=== PATIENT | female | born 1930 | race African-American/Black ===

== ENCOUNTER 2018-10-09 21:29 | Emergency (ER) | payer MEDICARE, MEDICAID ==
[~2018-10-09] VITALS: Ht 149.9 cm; Wt 92.0 kg
[~2018-10-09 21:29] MED LIST: LEVO250T2 PO; ZET10 PO
[2018-10-09] MEDS ORDERED: ASPIRIN 81MG TABLET PO ONE (22:45)
[2018-10-09 23:40] LABS: BASOPHILS % 0.4 % (0.0-2.0); EOSINOPHILS % 1.4 % (0.0-5.0); HEMATOCRIT. 37.4 % (36.0-48.0); HEMOGLOBIN. 12.3 g/dL (12.0-16.0); LYMPHOCYTES % 19.5 % (20.0-50.0); MEAN CORPUSCULAR HEMOGLOBIN 28.3 pg (28.0-32.0); MEAN CORPUSCULAR VOLUME 86.1 fL (81.0-99.0); MEAN PLATELET VOLUME 9.2 fl (7.4-10.4); MONOCYTES % 6.5 % (2.0-8.0); NEUTROPHILS % 72.2 % (40.0-76.0); PLATELET 199 x1000/uL (130-400); RED BLOOD CELL COUNT 4.35 mill/uL (4.2-5.4); RED CELL DISTRIBUTION WIDTH 15.7 % (11.6-14.6)
[2018-10-09 23:48] LABS: CHLORIDE 101 mEq/L (98-107)
[2018-10-10] MEDS ORDERED: SODIUM CHLORIDE 0.9% 1,000 ML IV ONE (00:15)
[2018-10-10 03:05] VITALS: BP 142/63
== END 2018-10-10 03:38 | disposition home or self-care (01) ==
LOC: ER 21:29
DX: I13.0 Hypertensive heart and chronic kidney disease with heart failure and stage 1 through stage 4 chronic kidney disease, or unspecified chronic kidney disease (principal); R07.89 Other chest pain; N18.9 Chronic kidney disease, unspecified; I50.9 Heart failure, unspecified; D64.9 Anemia, unspecified; E78.00 Pure hypercholesterolemia, unspecified; Z90.710 Acquired absence of both cervix and uterus
CPT/HCPCS: 36415; 71045; 83880; 84484; 93005; 99284

== ENCOUNTER 2018-10-14 12:26 | Emergency (ER) | payer MEDICARE, MEDICAID ==
[~2018-10-14] VITALS: Ht 149.9 cm; Wt 96.0 kg
[2018-10-14 15:47] VITALS: BP 172/74
== END 2018-10-14 18:19 | disposition left against medical advice (07) ==
LOC: ER 12:26
DX: R07.89 Other chest pain (principal); R53.1 Weakness; Z53.21 Procedure and treatment not carried out due to patient leaving prior to being seen by health care provider

== ENCOUNTER 2018-10-17 17:50 | Inpatient (IN) | payer MEDICARE, MEDICAID ==
[~2018-10-17] VITALS: Ht 167.6 cm; Wt 93.0 kg
[2018-10-17] MEDS ORDERED: ASPIRIN 81MG TABLET PO ONE (18:15)
[2018-10-17 18:42] LABS: BASOPHILS % 0.8 % (0.0-2.0); EOSINOPHILS % 1.4 % (0.0-5.0); HEMATOCRIT. 41.1 % (36.0-48.0); HEMOGLOBIN. 13.4 g/dL (12.0-16.0); LYMPHOCYTES % 19.8 % (20.0-50.0); MEAN CORPUSCULAR HEMOGLOBIN 28.2 pg (28.0-32.0); MEAN CORPUSCULAR VOLUME 86.6 fL (81.0-99.0); MEAN PLATELET VOLUME 9.2 fl (7.4-10.4); MONOCYTES % 8.5 % (2.0-8.0); NEUTROPHILS % 69.5 % (40.0-76.0); PLATELET 220 x1000/uL (130-400); RED BLOOD CELL COUNT 4.74 mill/uL (4.2-5.4); RED CELL DISTRIBUTION WIDTH 15.8 % (11.6-14.6)
[2018-10-17 18:45] LABS: CHLORIDE 105 mEq/L (98-107)
[2018-10-17 19:27] LABS: CLARITY URINE CLOUDY (CLEAR); COLOR URINE YELLOW (YELLOW); KETONES URINE NEGATIVE (NEGATIVE); LEUKOCYTE ESTERASE URINE 2+ (NEGATIVE); NITRITE URINE NEGATIVE (NEGATIVE); OCCULT BLOOD URINE NEGATIVE (NEGATIVE); PROTEIN URINE NEGATIVE (NEGATIVE); SPECIFIC GRAVITY URINE 1.007 (1.005-1.030); UROBILINOGEN URINE 0.2 E.U./dL (0.2-1.0)
[2018-10-17] MEDS ORDERED: CEFTRIAXONE 1 G PREMIX 50 ML IV ONE (20:15)
[2018-10-18] VITALS (7 sets, daily range): BP systolic 103–167; BP diastolic 49–75
[2018-10-18] MEDS ORDERED: ACETAMINOPHEN 325MG TABLET PO PRN (03:00)
[2018-10-18] MEDS ORDERED: LEVOFLOXACIN 500MG PREMIX 100 ML IV SCH ×3 (03:00→04:00)
[2018-10-18] MEDS ORDERED: CLONIDINE 0.1MG TABLET PO PRN (03:00)
[2018-10-18] MEDS: IPRATROPIUM/ALBUTEROL 0.5-3(2.5)MG/3ML NEB HHN SCH ×5 (05:25→20:18)
[2018-10-18 05:59] LABS: BASOPHILS % 0.5 % (0.0-2.0); EOSINOPHILS % 1.9 % (0.0-5.0); HEMATOCRIT. 35.3 % (36.0-48.0); HEMOGLOBIN. 11.5 g/dL (12.0-16.0); MEAN CORPUSCULAR HEMOGLOBIN 27.9 pg (28.0-32.0); MEAN CORPUSCULAR VOLUME 85.9 fL (81.0-99.0); MEAN PLATELET VOLUME 9.4 fl (7.4-10.4); MONOCYTES % 7.9 % (2.0-8.0); NEUTROPHILS % 67.7 % (40.0-76.0); PLATELET 214 x1000/uL (130-400); RED BLOOD CELL COUNT 4.11 mill/uL (4.2-5.4); RED CELL DISTRIBUTION WIDTH 15.9 % (11.6-14.6)
[2018-10-18 06:30] LABS: LDL CHOLESTEROL 75 mg/dL (5-100)
[2018-10-18 06:32] LABS: CREATINE KINASE 242 IU/L (26-192); HDL CHOLESTEROL 44 mg/dL (40-59)
[2018-10-18 06:35] LABS: CREATINE KINASE MB FRACTION 1.1 ng/mL (0.5-3.6)
[2018-10-18] MEDS ORDERED: OMEPRAZOLE 20MG CAPSULE EXTENDED RELEASE PO NR (07:45)
[2018-10-18] MEDS ORDERED: SODIUM CHL 0.45% + KCL 20MEQ/L 1,000 ML IV SCH (08:00)
[2018-10-18] MEDS ORDERED: ENOXAPARIN 40MG/0.4ML SYR SUBCUT SCH (09:00)
[2018-10-18] MEDS ORDERED: FUROSEMIDE 40MG/4ML VIAL IVP SCH (09:00)
[2018-10-18] MEDS ORDERED: POTASSIUM CHLORIDE 10MEQ TABLET SR PO SCH (09:00)
[2018-10-18] MEDS: ENOXAPARIN 30MG/0.3ML SYR SUBCUT SCH (09:20)
[2018-10-18 10:38] LABS: TOTAL IRON BINDING CAPACITY 270 ug/dL (250-450)
[2018-10-18] MEDS: EZETIMIBE 10MG TABLET PO SCH (10:41)
[2018-10-18] MEDS: DEXT 5%/0.45% NACL KCL 20MEQ/L 1,000 ML IV SCH (10:59)
[2018-10-18] MEDS: AMLODIPINE 5MG TABLET PO SCH ×2 (11:15→20:24)
[2018-10-18] MEDS ORDERED: INFLUENZA VIRUS VACCINE(AFLURIA) 0.5ML SYR IM ONE (12:00)
[2018-10-18] MEDS ORDERED: MECL-127 PO (18:05)
[2018-10-18] MEDS ORDERED: DOCU-150 PO (18:07)
[2018-10-18] MEDS ORDERED: LOSA50TA20 PO (18:08)
[2018-10-18] MEDS ORDERED: TRAM50TA3 PO (18:10)
[2018-10-18 18:12] LABS: CREATINE KINASE 216 IU/L (26-192)
[2018-10-18 18:13] LABS: CREATINE KINASE MB FRACTION < 1.0 ng/mL (0.5-3.6)
[2018-10-18] MEDS ORDERED: TRAMADOL 50MG TABLET PO PRN (18:30)
[2018-10-18] MEDS ORDERED: MECLIZINE 12.5MG TABLET PO PRN (18:30)
[2018-10-19] VITALS: BP 139/46
[2018-10-19] MEDS: IPRATROPIUM/ALBUTEROL 0.5-3(2.5)MG/3ML NEB HHN SCH ×6 (00:06→20:08)
[2018-10-19] MEDS: DEXT 5%/0.45% NACL KCL 20MEQ/L 1,000 ML IV SCH (00:35)
[2018-10-19 04:00] VITALS: BP 136/60
[2018-10-19] MEDS: LEVOFLOXACIN 250MG PREMIX 50 ML IV SCH (04:02)
[2018-10-19 06:34] LABS: BASOPHILS % 0.4 % (0.0-2.0); EOSINOPHILS % 1.7 % (0.0-5.0); HEMATOCRIT. 35.4 % (36.0-48.0); HEMOGLOBIN. 11.4 g/dL (12.0-16.0); LYMPHOCYTES % 21.1 % (20.0-50.0); MEAN CORPUSCULAR HEMOGLOBIN 28.1 pg (28.0-32.0); MEAN CORPUSCULAR VOLUME 86.9 fL (81.0-99.0); MEAN PLATELET VOLUME 9.2 fl (7.4-10.4); MONOCYTES % 8.4 % (2.0-8.0); NEUTROPHILS % 68.4 % (40.0-76.0); PLATELET 204 x1000/uL (130-400); RED BLOOD CELL COUNT 4.07 mill/uL (4.2-5.4); RED CELL DISTRIBUTION WIDTH 16.4 % (11.6-14.6)
[2018-10-19 08:00] VITALS: BP 141/66
[2018-10-19] MEDS: OMEPRAZOLE 20MG CAPSULE EXTENDED RELEASE PO SCH (08:48)
[2018-10-19] MEDS: AMLODIPINE 5MG TABLET PO SCH ×2 (08:48→21:43)
[2018-10-19] MEDS: DOCUSATE SODIUM 100MG CAPSULE PO SCH ×2 (08:48→17:16)
[2018-10-19] MEDS: EZETIMIBE 10MG TABLET PO SCH (08:48)
[2018-10-19] MEDS: ENOXAPARIN 30MG/0.3ML SYR SUBCUT SCH (08:49)
[2018-10-19] MEDS: DEXT 5%/0.45% NACL 1000ML 1,000 ML IV SCH ×2 (08:55→21:43)
[2018-10-19] MEDS ORDERED: LOSARTAN POTASSIUM 50 MG TABLET PO SCH (09:00)
[2018-10-19] MEDS ORDERED: SODIUM POLYSTYRENE SULFONATE 15 G/60 ML BOT PO NR (10:00)
[2018-10-19] MEDS ORDERED: REGADENOSON 0.4 MG/5 ML IV ONE (11:00)
[2018-10-19 12:00] VITALS: BP 140/60
[2018-10-19 16:00] VITALS: BP 144/78
[2018-10-20] MEDS: IPRATROPIUM/ALBUTEROL 0.5-3(2.5)MG/3ML NEB HHN SCH ×5 (00:06→20:33)
[2018-10-20] MEDS: LEVOFLOXACIN 250MG PREMIX 50 ML IV SCH (04:00)
[2018-10-20] MEDS: OMEPRAZOLE 20MG CAPSULE EXTENDED RELEASE PO SCH (07:40)
[2018-10-20 08:00] VITALS: BP 146/58
[2018-10-20] MEDS: EZETIMIBE 10MG TABLET PO SCH (09:00)
[2018-10-20] MEDS: DOCUSATE SODIUM 100MG CAPSULE PO SCH ×2 (09:00→17:30)
[2018-10-20] MEDS: AMLODIPINE 5MG TABLET PO SCH ×2 (09:00→20:41)
[2018-10-20] MEDS ORDERED: REGADENOSON 0.4 MG/5 ML IV ONE (10:08)
[2018-10-20] MEDS: ENOXAPARIN 30MG/0.3ML SYR SUBCUT SCH (11:25)
[2018-10-20 12:00] VITALS: BP 125/62
[2018-10-20 12:07] LABS: BASOPHILS % 0.4 % (0.0-2.0); EOSINOPHILS % 3.9 % (0.0-5.0); HEMATOCRIT. 37.7 % (36.0-48.0); HEMOGLOBIN. 12.5 g/dL (12.0-16.0); LYMPHOCYTES % 12.7 % (20.0-50.0); MEAN CORPUSCULAR HEMOGLOBIN 28.5 pg (28.0-32.0); MEAN CORPUSCULAR VOLUME 85.8 fL (81.0-99.0); MEAN PLATELET VOLUME 9.3 fl (7.4-10.4); MONOCYTES % 5.2 % (2.0-8.0); NEUTROPHILS % 77.8 % (40.0-76.0); PLATELET 224 x1000/uL (130-400); RED CELL DISTRIBUTION WIDTH 15.9 % (11.6-14.6)
[2018-10-20 16:00] VITALS: BP 151/63
[2018-10-20] MEDS: DEXT 5%/0.45% NACL 1000ML 1,000 ML IV SCH (17:30)
[2018-10-20 20:00] VITALS: BP 134/64
[2018-10-21] VITALS: BP 130/56
[2018-10-21] MEDS: IPRATROPIUM/ALBUTEROL 0.5-3(2.5)MG/3ML NEB HHN SCH ×3 (01:47→07:41)
[2018-10-21] MEDS: LEVOFLOXACIN 250MG PREMIX 50 ML IV SCH (03:06)
[2018-10-21 04:00] VITALS: BP 129/60
[2018-10-21 06:38] LABS: BASOPHILS % 0.5 % (0.0-2.0); EOSINOPHILS % 3.3 % (0.0-5.0); HEMOGLOBIN. 11.5 g/dL (12.0-16.0); LYMPHOCYTES % 15.7 % (20.0-50.0); MEAN CORPUSCULAR VOLUME 85.6 fL (81.0-99.0); MEAN PLATELET VOLUME 9.3 fl (7.4-10.4); MONOCYTES % 6.6 % (2.0-8.0); NEUTROPHILS % 73.9 % (40.0-76.0); PLATELET 198 x1000/uL (130-400); RED BLOOD CELL COUNT 4.09 mill/uL (4.2-5.4); RED CELL DISTRIBUTION WIDTH 16.2 % (11.6-14.6)
[2018-10-21] MEDS: DEXT 5%/0.45% NACL 1000ML 1,000 ML IV SCH (06:58)
[2018-10-21 08:00] VITALS: BP 141/63
[2018-10-21] MEDS: EZETIMIBE 10MG TABLET PO SCH (09:09)
[2018-10-21] MEDS: OMEPRAZOLE 20MG CAPSULE EXTENDED RELEASE PO SCH (09:09)
[2018-10-21] MEDS: AMLODIPINE 5MG TABLET PO SCH (09:13)
[2018-10-21] MEDS: DOCUSATE SODIUM 100MG CAPSULE PO SCH (09:13)
[2018-10-21] MEDS: ENOXAPARIN 30MG/0.3ML SYR SUBCUT SCH (09:15)
[2018-10-21 10:21] VITALS: BP 141/63
[2018-10-21 12:00] VITALS: BP 138/79
== END 2018-10-21 11:26 | disposition home or self-care (01) | DRG 291 ==
LOC: ER 17:50 → 7WST 20:58 → EDBEDREQTM 21:02 → EDBEDREQ 21:02 → ENRESERV 23:50
PROVIDERS: ADMIT Internal Medicine Geriatric Medicine; ATTEND Internal Medicine Geriatric Medicine
DX: I13.0 Hypertensive heart and chronic kidney disease with heart failure and stage 1 through stage 4 chronic kidney disease, or unspecified chronic kidney disease (principal); I50.23 Acute on chronic systolic (congestive) heart failure; N17.9 Acute kidney failure, unspecified; N39.0 Urinary tract infection, site not specified; M94.0 Chondrocostal junction syndrome [Tietze]; I20.0 Unstable angina; K29.70 Gastritis, unspecified, without bleeding; K21.9 Gastro-esophageal reflux disease without esophagitis; N18.9 Chronic kidney disease, unspecified; R41.89 Other symptoms and signs involving cognitive functions and awareness; I49.9 Cardiac arrhythmia, unspecified; D50.9 Iron deficiency anemia, unspecified; I11.0 Hypertensive heart disease with heart failure; E87.5 Hyperkalemia; D63.1 Anemia in chronic kidney disease; E78.5 Hyperlipidemia, unspecified; I50.9 Heart failure, unspecified; M15.9 Polyosteoarthritis, unspecified; I25.2 Old myocardial infarction; Z90.710 Acquired absence of both cervix and uterus; Z79.899 Other long term (current) drug therapy
CPT/HCPCS: 36415; 71045; 78452; 80048; 80061; 82550; 82553; 83540; 83550; 83735; 83880; 84443; 84484; 87077; 87186; 90686; 93005; 93017; 93306; 94640; 96365; 97116; 97162; 97530; 97535; 99285; A6261; A9500; A9558; C1893; J0696; J1650; J1956; J2785; J3480; J7050; J7620

== ENCOUNTER 2018-10-27 08:32 | Inpatient (IN) | payer MEDICARE, MEDICAID ==
[~2018-10-27] VITALS: Ht 149.9 cm; Wt 96.9 kg
[~2018-10-27 08:32] MED LIST changes: +DOCU-150 PO; -LEVO250T2 PO; +LOSA50TA20 PO; +MECL-127 PO; +TRAM50TA3 PO
[2018-10-27] MEDS ORDERED: VANCOMYCIN 1 G PREMIX 200 ML IV ONE (10:15)
[2018-10-27] MEDS ORDERED: SODIUM CHLORIDE 0.9% 1000ML BAG (SEPSIS BOLUS) IV ONE (10:15)
[2018-10-27] MEDS ORDERED: PIPERACILLIN/TAZ 3.375G PREMIX 50 ML IV ONE (10:15)
[2018-10-27 10:45] LABS: BG BASE EXCESS -4.4 mmol/L (-2.0-2.0); BG CARBOXYHEMOGLOBIN 0.5 % (0.5-1.5); BG HCO3 ACT 18.7 mmol/L (22.0-26.0); BG METHEMOGLOBIN 0.4 % (0.0-1.5); BG OXYHEMOGLOBIN 98.1 % (94.0-97.0); BG PCO2 29.4 mmHg (35.0-45.0); BG PH 7.422 (7.350-7.450); BG PO2 147.3 mmHg (75.0-100.0); BG SAMPLE SITE RIGHT RADIAL; BG TOTAL HEMOGLOBIN 13.7 g/dL (12.0-18.0); BG VENT MODE NASAL CANNULA
[2018-10-27 10:58] LABS: HEMATOCRIT. 39.1 % (36.0-48.0); HEMOGLOBIN. 12.7 g/dL (12.0-16.0); MEAN CORPUSCULAR VOLUME 86.2 fL (81.0-99.0); MEAN PLATELET VOLUME 8.7 fl (7.4-10.4); PLATELET 288 x1000/uL (130-400); RED BLOOD CELL COUNT 4.53 mill/uL (4.2-5.4); RED CELL DISTRIBUTION WIDTH 15.3 % (11.6-14.6)
[2018-10-27 11:05] LABS: CHLORIDE 113 mEq/L (98-107); INR 1.1; PROTHROMBIN TIME 11.4 sec (9.1-11.1)
[2018-10-27 11:09] LABS: ETHANOL BLOOD < 10 mg/dL
[2018-10-27 11:18] LABS: PLATELET ESTIMATE NORMAL
[2018-10-27 12:18] LABS: CREATINE KINASE 13520 IU/L (26-192)
[2018-10-27] MEDS ORDERED: DOCUSATE SODIUM 100MG CAPSULE PO PRN (13:45)
[2018-10-27] MEDS ORDERED: MAGNESIUM/ALUMINUM HYDROXIDE/SIMETHICONE 30ML UDC PO PRN (13:45)
[2018-10-27] MEDS ORDERED: GUAIFENESIN 200MG/10ML SUGAR FREE UDC PO PRN (13:45)
[2018-10-27] MEDS ORDERED: LEVOFLOXACIN 500MG PREMIX 100 ML IV SCH (13:45)
[2018-10-27] MEDS ORDERED: NITROGLYCERIN 0.4MG TABLET SL SL PRN (13:45)
[2018-10-27] MEDS ORDERED: NA PHOS,M-B/NA PHOS,DI-BA ENEMA 118ML PR PRN (13:45)
[2018-10-27] MEDS ORDERED: CLONIDINE 0.1MG TABLET PO PRN (13:45)
[2018-10-27] MEDS ORDERED: ONDANSETRON HCL 4MG/2ML INJ IV PRN (13:45)
[2018-10-27] MEDS ORDERED: TRAMADOL 50MG TABLET PO PRN (13:45)
[2018-10-27] MEDS ORDERED: IPRATROPIUM/ALBUTEROL 0.5-3(2.5)MG/3ML NEB INH PRN (13:45)
[2018-10-27] MEDS ORDERED: LEVOFLOXACIN 500MG PREMIX 100 ML IV NR (15:04)
[2018-10-27 15:55] LABS: T4 FREE 1.21 ng/dL (0.76-1.46)
[2018-10-27] MEDS ORDERED: DILTIAZEM HCL 60MG TABLET PO SCH (18:32)
[2018-10-27] MEDS: ACETAMINOPHEN 325MG TABLET PO PRN (20:00)
[2018-10-27 20:54] LABS: CREATINE KINASE MB FRACTION 13.3 ng/mL (0.5-3.6)
[2018-10-27 22:40] VITALS: BP 149/72
[2018-10-27] MEDS: DILTIAZEM HCL 60MG TABLET PO SCH (23:39)
[2018-10-27] MEDS: SODIUM CHLORIDE 0.9% 1,000 ML IV SCH (23:40)
[2018-10-28] VITALS: BP_SYST 133; BP_SYST 150; BP_DIAS 45; BP_DIAS 66
[2018-10-28 04:00] VITALS: BP 145/66
[2018-10-28] MEDS: DILTIAZEM HCL 60MG TABLET PO SCH ×4 (05:03→18:52)
[2018-10-28] MEDS: ACETAMINOPHEN 325MG TABLET PO PRN (05:03)
[2018-10-28 08:00] VITALS: BP 140/62
[2018-10-28] MEDS ORDERED: CEFTRIAXONE 1 G PREMIX 50 ML IV SCH (09:00)
[2018-10-28] MEDS ORDERED: CITRIC ACID/SODIUM CITRATE SOLN 15ML UDC PO SCH (09:00)
[2018-10-28 09:52] LABS: CREATINE KINASE MB FRACTION 5.7 ng/mL (0.5-3.6)
[2018-10-28] MEDS: CEFTRIAXONE 1,000 MG in DEXTROSE 5% WATER 50 ML IV SCH (10:00)
[2018-10-28] MEDS: ZINC SULFATE 220 MG ( 50 ) CAPSULE PO SCH (10:01)
[2018-10-28] MEDS: FAMOTIDINE 20MG TABLET PO SCH (10:01)
[2018-10-28] MEDS: ASCORBIC ACID 500 MG TABLET PO SCH ×2 (10:01→20:39)
[2018-10-28] MEDS: ASPIRIN 325MG EC TABLET PO SCH (10:01)
[2018-10-28] MEDS: ENOXAPARIN 30MG/0.3ML SYR SUBCUT SCH (10:02)
[2018-10-28 10:47] LABS: CREATINE KINASE 8552 IU/L (26-192)
[2018-10-28 12:00] VITALS: BP 129/49
[2018-10-28 13:29] LABS: BASOPHILS % 0.5 % (0.0-2.0); EOSINOPHILS % 1.1 % (0.0-5.0); HEMATOCRIT. 38.8 % (36.0-48.0); HEMOGLOBIN. 12.4 g/dL (12.0-16.0); LYMPHOCYTES % 9.8 % (20.0-50.0); MEAN CORPUSCULAR HEMOGLOBIN 27.7 pg (28.0-32.0); MEAN CORPUSCULAR VOLUME 86.4 fL (81.0-99.0); MEAN PLATELET VOLUME 9.7 fl (7.4-10.4); MONOCYTES % 5.8 % (2.0-8.0); NEUTROPHILS % 82.8 % (40.0-76.0); PLATELET 269 x1000/uL (130-400); RED BLOOD CELL COUNT 4.49 mill/uL (4.2-5.4); RED CELL DISTRIBUTION WIDTH 15.9 % (11.6-14.6)
[2018-10-28 14:17] LABS: HEPATITIS B SURFACE ANTIGEN NEGATIVE
[2018-10-28 14:46] LABS: HEPATITIS A AB IGM NEGATIVE (NEGATIVE)
[2018-10-28 15:22] LABS: CHLORIDE 115 mEq/L (98-107)
[2018-10-28 16:00] VITALS: BP 132/70
[2018-10-28] MEDS: SODIUM CHLORIDE 0.9% 1,000 ML IV SCH ×3 (18:39→20:40)
[2018-10-28 20:00] VITALS: BP 136/55
[2018-10-29] VITALS: BP_SYST 133; BP_SYST 139; BP_DIAS 45; BP_DIAS 46
[2018-10-29] MEDS: DILTIAZEM HCL 60MG TABLET PO SCH ×4 (01:20→18:00)
[2018-10-29 04:00] VITALS: BP 130/49
[2018-10-29 05:28] LABS: CLARITY URINE CLEAR (CLEAR); COLOR URINE YELLOW (YELLOW); KETONES URINE NEGATIVE (NEGATIVE); LEUKOCYTE ESTERASE URINE TRACE (NEGATIVE); NITRITE URINE NEGATIVE (NEGATIVE); OCCULT BLOOD URINE 2+ (NEGATIVE); PH URINE 5.5 (4.5-8.0); PROTEIN URINE TRACE (NEGATIVE); SPECIFIC GRAVITY URINE 1.016 (1.005-1.030)
[2018-10-29] MEDS: SODIUM CHLORIDE 0.9% 1,000 ML IV SCH ×2 (05:35→15:43)
[2018-10-29 07:23] LABS: BASOPHILS % 0.5 % (0.0-2.0); EOSINOPHILS % 3.6 % (0.0-5.0); MEAN CORPUSCULAR HEMOGLOBIN 27.8 pg (28.0-32.0); MEAN CORPUSCULAR VOLUME 86.5 fL (81.0-99.0); MONOCYTES % 5.5 % (2.0-8.0); NEUTROPHILS % 80.4 % (40.0-76.0); PLATELET 245 x1000/uL (130-400); RED BLOOD CELL COUNT 3.76 mill/uL (4.2-5.4); RED CELL DISTRIBUTION WIDTH 15.9 % (11.6-14.6)
[2018-10-29 07:25] LABS: CHLORIDE 114 mEq/L (98-107)
[2018-10-29 07:35] LABS: LDL CHOLESTEROL 56 mg/dL (5-100); PHOSPHORUS 2.9 mg/dL (2.5-4.9)
[2018-10-29 07:36] LABS: CREATINE KINASE MB FRACTION 2.3 ng/mL (0.5-3.6); HDL CHOLESTEROL 28 mg/dL (40-59)
[2018-10-29 08:00] VITALS: BP 94/38
[2018-10-29 08:15] LABS: CREATINE KINASE 4578 IU/L (26-192)
[2018-10-29 08:23] LABS: HEMATOCRIT. 32.5 % (36.0-48.0); HEMOGLOBIN. 10.5 g/dL (12.0-16.0)
[2018-10-29] MEDS: ENOXAPARIN 30MG/0.3ML SYR SUBCUT SCH (09:25)
[2018-10-29] MEDS: CEFTRIAXONE 1,000 MG in DEXTROSE 5% WATER 50 ML IV SCH (09:25)
[2018-10-29] MEDS: FAMOTIDINE 20MG TABLET PO SCH (09:26)
[2018-10-29] MEDS: ASCORBIC ACID 500 MG TABLET PO SCH ×2 (09:26→21:23)
[2018-10-29] MEDS: ZINC SULFATE 220 MG ( 50 ) CAPSULE PO SCH (09:26)
[2018-10-29] MEDS: ASPIRIN 325MG EC TABLET PO SCH (09:26)
[2018-10-29 12:00] VITALS: BP 138/43
[2018-10-29] MEDS: LEVOFLOXACIN 250MG PREMIX 50 ML IV SCH (15:19)
[2018-10-29 16:00] VITALS: BP 102/48
[2018-10-29 20:00] VITALS: BP_SYST 133; BP_SYST 143; BP_DIAS 54
[2018-10-29 20:37] LABS: T4 FREE 0.97 ng/dL (0.76-1.46)
[2018-10-30] VITALS: BP 131/51
[2018-10-30] MEDS: DILTIAZEM HCL 60MG TABLET PO SCH ×4 (00:37→18:41)
[2018-10-30] MEDS: SODIUM CHLORIDE 0.9% 1,000 ML IV SCH ×2 (03:43→12:54)
[2018-10-30 04:00] VITALS: BP 151/55
[2018-10-30 08:00] VITALS: BP 143/51
[2018-10-30] MEDS: ASPIRIN 325MG EC TABLET PO SCH (08:45)
[2018-10-30] MEDS: CEFTRIAXONE 1,000 MG in DEXTROSE 5% WATER 50 ML IV SCH (08:45)
[2018-10-30] MEDS: ZINC SULFATE 220 MG ( 50 ) CAPSULE PO SCH (08:45)
[2018-10-30] MEDS: ENOXAPARIN 30MG/0.3ML SYR SUBCUT SCH (08:46)
[2018-10-30 10:12] LABS: BASOPHILS % 0.2 % (0.0-2.0); EOSINOPHILS % 4.8 % (0.0-5.0); HEMATOCRIT. 33.7 % (36.0-48.0); HEMOGLOBIN. 10.9 g/dL (12.0-16.0); LYMPHOCYTES % 10.7 % (20.0-50.0); MEAN CORPUSCULAR HEMOGLOBIN 28.2 pg (28.0-32.0); MEAN CORPUSCULAR VOLUME 87.1 fL (81.0-99.0); MEAN PLATELET VOLUME 8.8 fl (7.4-10.4); MONOCYTES % 5.9 % (2.0-8.0); NEUTROPHILS % 78.4 % (40.0-76.0); PLATELET 267 x1000/uL (130-400); RED BLOOD CELL COUNT 3.86 mill/uL (4.2-5.4)
[2018-10-30 10:43] LABS: PHOSPHORUS 2.5 mg/dL (2.5-4.9)
[2018-10-30] MEDS: FAMOTIDINE 20MG TABLET PO SCH (10:50)
[2018-10-30] MEDS: ASCORBIC ACID 500 MG TABLET PO SCH ×2 (10:50→21:29)
[2018-10-30 12:00] VITALS: BP 130/48
[2018-10-30 16:00] VITALS: BP 138/52
[2018-10-30] MEDS: ACETAMINOPHEN 325MG TABLET PO PRN (16:20)
[2018-10-30 20:00] VITALS: BP 138/45
[2018-10-31] VITALS: BP 150/57
[2018-10-31] MEDS: DILTIAZEM HCL 60MG TABLET PO SCH ×4 (01:02→17:07)
[2018-10-31 04:00] VITALS: BP 130/49
[2018-10-31 07:18] LABS: BASOPHILS % 0.2 % (0.0-2.0); EOSINOPHILS % 3.3 % (0.0-5.0); HEMATOCRIT. 32.2 % (36.0-48.0); HEMOGLOBIN. 10.4 g/dL (12.0-16.0); LYMPHOCYTES % 9.7 % (20.0-50.0); MEAN CORPUSCULAR HEMOGLOBIN 27.7 pg (28.0-32.0); MEAN CORPUSCULAR VOLUME 85.9 fL (81.0-99.0); MONOCYTES % 7.1 % (2.0-8.0); NEUTROPHILS % 79.7 % (40.0-76.0); PLATELET 269 x1000/uL (130-400); RED BLOOD CELL COUNT 3.76 mill/uL (4.2-5.4); RED CELL DISTRIBUTION WIDTH 15.5 % (11.6-14.6)
[2018-10-31 08:00] VITALS: BP 131/47
[2018-10-31] MEDS: ZINC SULFATE 220 MG ( 50 ) CAPSULE PO SCH (09:10)
[2018-10-31] MEDS: ASPIRIN 325MG EC TABLET PO SCH (09:10)
[2018-10-31] MEDS: ASCORBIC ACID 500 MG TABLET PO SCH (09:10)
[2018-10-31] MEDS: SODIUM CHLORIDE 0.9% 1,000 ML IV SCH (09:10)
[2018-10-31] MEDS: CEFTRIAXONE 1,000 MG in DEXTROSE 5% WATER 50 ML IV SCH (09:10)
[2018-10-31] MEDS: ENOXAPARIN 30MG/0.3ML SYR SUBCUT SCH (09:11)
[2018-10-31] MEDS: FAMOTIDINE 20MG TABLET PO SCH (09:11)
[2018-10-31] MEDS ORDERED: SODIUM CHLORIDE 0.9% 1,000 ML IV SCH (09:32)
[2018-10-31 12:00] VITALS: BP 146/48
[2018-10-31] MEDS ORDERED: LACTULOSE 20G/30ML UDC PO SCH (14:00)
[2018-10-31] MEDS: LEVOFLOXACIN 250MG PREMIX 50 ML IV SCH (14:53)
[2018-10-31 16:00] VITALS: BP 104/82
[2018-10-31 17:13] VITALS: BP 106/73
== END 2018-10-31 20:35 | DRG 871 ==
LOC: ER 08:46 → 5WST 12:59 → EDBEDREQSVC 13:01 → EDBEDREQ 13:01 → SUPCPDRO 13:41 → ENRESERV 21:01
PROVIDERS: ADMIT Internal Medicine; ATTEND Internal Medicine
DX: A41.9 Sepsis, unspecified organism (principal); E43 Unspecified severe protein-calorie malnutrition; G92 Toxic encephalopathy; G82.50 Quadriplegia, unspecified; N17.0 Acute kidney failure with tubular necrosis; M62.82 Rhabdomyolysis; N39.0 Urinary tract infection, site not specified; Z68.41 Body mass index [BMI] 40.0-44.9, adult; E78.5 Hyperlipidemia, unspecified; N18.3 Chronic kidney disease, stage 3 (moderate); L89.159 Pressure ulcer of sacral region, unspecified stage; D64.9 Anemia, unspecified; E66.01 Morbid (severe) obesity due to excess calories; G31.84 Mild cognitive impairment of uncertain or unknown etiology; I12.9 Hypertensive chronic kidney disease with stage 1 through stage 4 chronic kidney disease, or unspecified chronic kidney disease; K76.0 Fatty (change of) liver, not elsewhere classified; M12.9 Arthropathy, unspecified; M46.90 Unspecified inflammatory spondylopathy, site unspecified; M47.894 Other spondylosis, thoracic region; M48.02 Spinal stenosis, cervical region; R26.9 Unspecified abnormalities of gait and mobility; M48.061 Spinal stenosis, lumbar region without neurogenic claudication; M50.222 Other cervical disc displacement at C5-C6 level; M50.223 Other cervical disc displacement at C6-C7 level; M51.26 Other intervertebral disc displacement, lumbar region; N28.1 Cyst of kidney, acquired; R13.10 Dysphagia, unspecified; Z82.49 Family history of ischemic heart disease and other diseases of the circulatory system; Z83.3 Family history of diabetes mellitus; Z86.73 Personal history of transient ischemic attack (TIA), and cerebral infarction without residual deficits
CPT/HCPCS: 36415; 36600; 70551; 71045; 72141; 72146; 72148; 73502; 76700; 80048; 80061; 80320; 82140; 82375; 82550; 82553; 82607; 82746; 82805; 82962; 83036; 83540; 83550; 83605; 83735; 83880; 84100; 84134; 84145; 84439; 84443; 84481; 84484; 85379; 86705; 86709; 86803; 87106; 87340; 92610; 93005; 93880; 93970; 96365; 96366; 96367; 97163; 97167; 97530; 99291; A6261; C1893; J0696; J1650; J1956; J2543; J3370; J7030; J7040; J7060; A4315; G0480

== ENCOUNTER 2018-10-31 20:40 | Inpatient (IN) | payer MEDICARE, MEDICAID ==
[~2018-10-31] VITALS: Ht 149.9 cm; Wt 95.1 kg
[2018-10-31 20:00] VITALS: BP 142/61
[2018-10-31] MEDS ORDERED: NITROGLYCERIN 0.4MG TABLET SL SL PRN (22:00)
[2018-10-31] MEDS ORDERED: GUAIFENESIN 200MG/10ML SUGAR FREE UDC PO PRN (22:00)
[2018-10-31] MEDS ORDERED: IPRATROPIUM/ALBUTEROL 0.5-3(2.5)MG/3ML NEB HHN PRN (22:00)
[2018-10-31] MEDS ORDERED: TRAMADOL 50MG TABLET PO PRN ×3 (22:00→23:30)
[2018-10-31] MEDS ORDERED: DOCUSATE SODIUM 100MG CAPSULE PO PRN (22:00)
[2018-10-31] MEDS ORDERED: MAGNESIUM/ALUMINUM HYDROXIDE/SIMETHICONE 30ML UDC PO PRN (22:00)
[2018-10-31] MEDS ORDERED: CLONIDINE 0.1MG TABLET PO PRN (22:00)
[2018-10-31] MEDS ORDERED: ONDANSETRON HCL 4MG/2ML INJ IV PRN (22:00)
[2018-10-31] MEDS ORDERED: NA PHOS,M-B/NA PHOS,DI-BA ENEMA 118ML PR PRN (22:00)
[2018-10-31 22:39] VITALS: BP 142/61
[2018-11-01] MEDS: DILTIAZEM HCL 60MG TABLET PO SCH ×5 (00:55→23:27)
[2018-11-01] MEDS: LACTULOSE 20G/30ML UDC PO SCH ×4 (00:56→21:16)
[2018-11-01 06:39] LABS: HEMATOCRIT. 32.3 % (36.0-48.0); HEMOGLOBIN. 10.4 g/dL (12.0-16.0); MEAN CORPUSCULAR HEMOGLOBIN 27.7 pg (28.0-32.0); MEAN CORPUSCULAR VOLUME 85.9 fL (81.0-99.0); MEAN PLATELET VOLUME 8.9 fl (7.4-10.4); PLATELET 302 x1000/uL (130-400); RED BLOOD CELL COUNT 3.76 mill/uL (4.2-5.4); RED CELL DISTRIBUTION WIDTH 15.6 % (11.6-14.6)
[2018-11-01 06:59] LABS: CHLORIDE 109 mEq/L (98-107)
[2018-11-01 07:05] LABS: PHOSPHORUS 3.5 mg/dL (2.5-4.9)
[2018-11-01 07:20] LABS: CREATINE KINASE 1410 IU/L (26-192)
[2018-11-01 08:00] VITALS: BP 166/75
[2018-11-01] MEDS: FAMOTIDINE 20MG TABLET PO SCH (08:35)
[2018-11-01] MEDS: ASCORBIC ACID 500 MG TABLET PO SCH ×2 (08:35→20:40)
[2018-11-01] MEDS: ASPIRIN 325MG EC TABLET PO SCH (08:35)
[2018-11-01] MEDS: ZINC SULFATE 220 MG ( 50 ) CAPSULE PO SCH (08:35)
[2018-11-01] MEDS: ENOXAPARIN 40MG/0.4ML SYR SUBCUT SCH (08:36)
[2018-11-01 08:45] VITALS: BP 154/89
[2018-11-01] MEDS ORDERED: ENOXAPARIN 30MG/0.3ML SYR SUBCUT SCH (09:00)
[2018-11-01] MEDS ORDERED: CEFTRIAXONE 1 G PREMIX 50 ML IV SCH (10:00)
[2018-11-01 14:55] LABS: CLARITY URINE CLOUDY (CLEAR); COLOR URINE YELLOW (YELLOW); KETONES URINE NEGATIVE (NEGATIVE); LEUKOCYTE ESTERASE URINE NEGATIVE (NEGATIVE); NITRITE URINE NEGATIVE (NEGATIVE); OCCULT BLOOD URINE 2+ (NEGATIVE); PROTEIN URINE NEGATIVE (NEGATIVE); SPECIFIC GRAVITY URINE 1.012 (1.005-1.030); UROBILINOGEN URINE 0.2 E.U./dL (0.2-1.0)
[2018-11-01] MEDS: FLUCONAZOLE 100MG TABLET PO SCH (15:12)
[2018-11-01] MEDS ORDERED: LEVOFLOXACIN 250MG PREMIX 50 ML IV SCH (17:00)
[2018-11-01 20:00] VITALS: BP 131/77
[2018-11-01] MEDS: NYSTATIN POWDER 15GM TOP SCH (20:40)
[2018-11-02] MEDS: LACTULOSE 20G/30ML UDC PO SCH ×3 (05:12→21:18)
[2018-11-02] MEDS: DILTIAZEM HCL 60MG TABLET PO SCH ×4 (05:13→23:35)
[2018-11-02 06:06] LABS: PHOSPHORUS 3.8 mg/dL (2.5-4.9)
[2018-11-02 06:37] LABS: BASOPHILS % 0.4 % (0.0-2.0); EOSINOPHILS % 3.9 % (0.0-5.0); HEMATOCRIT. 32.2 % (36.0-48.0); HEMOGLOBIN. 10.3 g/dL (12.0-16.0); LYMPHOCYTES % 12.9 % (20.0-50.0); MEAN CORPUSCULAR HEMOGLOBIN 27.4 pg (28.0-32.0); MEAN CORPUSCULAR VOLUME 85.9 fL (81.0-99.0); MEAN PLATELET VOLUME 8.5 fl (7.4-10.4); NEUTROPHILS % 75.8 % (40.0-76.0); PLATELET 280 x1000/uL (130-400); RED BLOOD CELL COUNT 3.75 mill/uL (4.2-5.4); RED CELL DISTRIBUTION WIDTH 15.5 % (11.6-14.6)
[2018-11-02 08:00] VITALS: BP 124/40
[2018-11-02] MEDS: ENOXAPARIN 40MG/0.4ML SYR SUBCUT SCH (08:31)
[2018-11-02] MEDS: NYSTATIN POWDER 15GM TOP SCH ×2 (08:31→20:34)
[2018-11-02] MEDS: FLUCONAZOLE 100MG TABLET PO SCH (08:32)
[2018-11-02] MEDS: ZINC SULFATE 220 MG ( 50 ) CAPSULE PO SCH (08:32)
[2018-11-02] MEDS: ASPIRIN 325MG EC TABLET PO SCH (08:32)
[2018-11-02] MEDS: ASCORBIC ACID 500 MG TABLET PO SCH ×2 (08:32→20:34)
[2018-11-02] MEDS: FAMOTIDINE 20MG TABLET PO SCH (08:32)
[2018-11-02 11:22] LABS: PLATELET ESTIMATE NORMAL
[2018-11-02 20:00] VITALS: BP 123/56
[2018-11-02 20:23] LABS: BASOPHILS % 0.8 % (0.0-2.0); EOSINOPHILS % 4.1 % (0.0-5.0); HEMATOCRIT. 34.4 % (36.0-48.0); HEMOGLOBIN. 10.9 g/dL (12.0-16.0); LYMPHOCYTES % 15.7 % (20.0-50.0); MEAN CORPUSCULAR HEMOGLOBIN 27.7 pg (28.0-32.0); MEAN CORPUSCULAR VOLUME 87.5 fL (81.0-99.0); MEAN PLATELET VOLUME 9.2 fl (7.4-10.4); MONOCYTES % 6.4 % (2.0-8.0); PLATELET 277 x1000/uL (130-400); RED BLOOD CELL COUNT 3.94 mill/uL (4.2-5.4); RED CELL DISTRIBUTION WIDTH 15.9 % (11.6-14.6)
[2018-11-02 23:11] LABS: CHLORIDE 107 mEq/L (98-107)
[2018-11-03] MEDS: DILTIAZEM HCL 60MG TABLET PO SCH ×3 (05:14→17:41)
[2018-11-03] MEDS: LACTULOSE 20G/30ML UDC PO SCH (05:15)
[2018-11-03 06:44] LABS: BASOPHILS % 0.4 % (0.0-2.0); EOSINOPHILS % 3.7 % (0.0-5.0); HEMATOCRIT. 32.1 % (36.0-48.0); HEMOGLOBIN. 10.4 g/dL (12.0-16.0); LYMPHOCYTES % 15.4 % (20.0-50.0); MEAN CORPUSCULAR HEMOGLOBIN 27.9 pg (28.0-32.0); MEAN CORPUSCULAR VOLUME 85.8 fL (81.0-99.0); MEAN PLATELET VOLUME 8.6 fl (7.4-10.4); MONOCYTES % 7.3 % (2.0-8.0); NEUTROPHILS % 73.2 % (40.0-76.0); PLATELET 305 x1000/uL (130-400); RED BLOOD CELL COUNT 3.74 mill/uL (4.2-5.4); RED CELL DISTRIBUTION WIDTH 15.8 % (11.6-14.6)
[2018-11-03 06:59] LABS: PHOSPHORUS 3.6 mg/dL (2.5-4.9)
[2018-11-03 07:23] LABS: FOLIC ACID (FOLATE) SERUM 9.3 ng/mL (>5.38)
[2018-11-03 08:32] VITALS: BP 137/53
[2018-11-03] MEDS: NYSTATIN POWDER 15GM TOP SCH ×2 (08:44→20:53)
[2018-11-03] MEDS: FAMOTIDINE 20MG TABLET PO SCH (08:44)
[2018-11-03] MEDS: ASPIRIN 325MG EC TABLET PO SCH (08:44)
[2018-11-03] MEDS: ASCORBIC ACID 500 MG TABLET PO SCH ×2 (08:44→20:53)
[2018-11-03] MEDS: ZINC SULFATE 220 MG ( 50 ) CAPSULE PO SCH (08:44)
[2018-11-03] MEDS: FLUCONAZOLE 100MG TABLET PO SCH (08:44)
[2018-11-03] MEDS: ENOXAPARIN 40MG/0.4ML SYR SUBCUT SCH (08:45)
[2018-11-03] MEDS ORDERED: MAGNESIUM 1 G PREMIX 100 ML IV SCH (10:00)
[2018-11-03] MEDS: CYANOCOBALAMIN 1000MCG/ML VIAL IM SCH (17:41)
[2018-11-03 20:09] VITALS: BP 129/63
[2018-11-04] MEDS: DILTIAZEM HCL 60MG TABLET PO SCH ×4 (00:22→18:00)
[2018-11-04 06:40] LABS: PHOSPHORUS 3.5 mg/dL (2.5-4.9)
[2018-11-04 06:43] LABS: T4 FREE 0.95 ng/dL (0.76-1.46)
[2018-11-04 06:54] LABS: BASOPHILS % 0.2 % (0.0-2.0); EOSINOPHILS % 2.2 % (0.0-5.0); HEMATOCRIT. 31.3 % (36.0-48.0); HEMOGLOBIN. 10.1 g/dL (12.0-16.0); LYMPHOCYTES % 8.2 % (20.0-50.0); MEAN CORPUSCULAR HEMOGLOBIN 27.7 pg (28.0-32.0); MEAN CORPUSCULAR VOLUME 85.7 fL (81.0-99.0); MEAN PLATELET VOLUME 8.9 fl (7.4-10.4); MONOCYTES % 6.7 % (2.0-8.0); NEUTROPHILS % 82.7 % (40.0-76.0); PLATELET 290 x1000/uL (130-400); RED BLOOD CELL COUNT 3.65 mill/uL (4.2-5.4); RED CELL DISTRIBUTION WIDTH 16.1 % (11.6-14.6)
[2018-11-04 08:07] VITALS: BP 137/53
[2018-11-04] MEDS: ASCORBIC ACID 500 MG TABLET PO SCH ×2 (09:03→21:29)
[2018-11-04] MEDS: ASPIRIN 325MG EC TABLET PO SCH (09:03)
[2018-11-04] MEDS: FAMOTIDINE 20MG TABLET PO SCH (09:03)
[2018-11-04] MEDS: FLUCONAZOLE 100MG TABLET PO SCH (09:03)
[2018-11-04] MEDS: CYANOCOBALAMIN 1000MCG/ML VIAL IM SCH (09:03)
[2018-11-04] MEDS: ENOXAPARIN 40MG/0.4ML SYR SUBCUT SCH (09:05)
[2018-11-04] MEDS: NYSTATIN POWDER 15GM TOP SCH ×2 (09:06→21:30)
[2018-11-04] MEDS: ZINC SULFATE 220 MG ( 50 ) CAPSULE PO SCH (09:10)
[2018-11-04] MEDS ORDERED: ZINC SULFATE 220 MG ( 50 ) CAPSULE PO SCH (17:00)
[2018-11-04 20:00] VITALS: BP 127/38
[2018-11-04] MEDS ORDERED: ASCORBIC ACID 250 MG TABLET PO SCH (21:00)
[2018-11-05] MEDS: DILTIAZEM HCL 60MG TABLET PO SCH ×5 (00:59→23:32)
[2018-11-05 06:29] LABS: BASOPHILS % 0.3 % (0.0-2.0); EOSINOPHILS % 2.1 % (0.0-5.0); HEMATOCRIT. 28.8 % (36.0-48.0); HEMOGLOBIN. 9.4 g/dL (12.0-16.0); LYMPHOCYTES % 13.6 % (20.0-50.0); MEAN CORPUSCULAR HEMOGLOBIN 27.8 pg (28.0-32.0); MEAN PLATELET VOLUME 8.8 fl (7.4-10.4); MONOCYTES % 8.7 % (2.0-8.0); NEUTROPHILS % 75.3 % (40.0-76.0); PLATELET 311 x1000/uL (130-400); RED BLOOD CELL COUNT 3.38 mill/uL (4.2-5.4); RED CELL DISTRIBUTION WIDTH 15.8 % (11.6-14.6)
[2018-11-05 07:15] LABS: PHOSPHORUS 3.5 mg/dL (2.5-4.9)
[2018-11-05 08:42] VITALS: BP 128/55
[2018-11-05] MEDS: CYANOCOBALAMIN 1000MCG/ML VIAL IM SCH (09:23)
[2018-11-05] MEDS: ASCORBIC ACID 500 MG TABLET PO SCH ×2 (09:23→20:55)
[2018-11-05] MEDS: FLUCONAZOLE 100MG TABLET PO SCH (09:23)
[2018-11-05] MEDS: ASPIRIN 325MG EC TABLET PO SCH (09:23)
[2018-11-05] MEDS: FAMOTIDINE 20MG TABLET PO SCH (09:23)
[2018-11-05] MEDS: ENOXAPARIN 40MG/0.4ML SYR SUBCUT SCH (09:24)
[2018-11-05] MEDS: ZINC SULFATE 220 MG ( 50 ) CAPSULE PO SCH (09:28)
[2018-11-05] MEDS: NYSTATIN POWDER 15GM TOP SCH ×2 (09:29→20:56)
[2018-11-05 20:00] VITALS: BP 135/70
[2018-11-05] MEDS: MULTIVITAMINS,THER W-MINERALS TABLET PO SCH (20:55)
[2018-11-06] MEDS: DILTIAZEM HCL 60MG TABLET PO SCH ×4 (05:47→23:26)
[2018-11-06 08:00] VITALS: BP 123/55
[2018-11-06] MEDS: MULTIVITAMINS,THER W-MINERALS TABLET PO SCH (08:27)
[2018-11-06] MEDS: FAMOTIDINE 20MG TABLET PO SCH (08:27)
[2018-11-06] MEDS: ASPIRIN 325MG EC TABLET PO SCH (08:27)
[2018-11-06] MEDS: ASCORBIC ACID 500 MG TABLET PO SCH ×2 (08:28→20:47)
[2018-11-06] MEDS: ACETAMINOPHEN 325MG TABLET PO PRN ×2 (08:28→14:17)
[2018-11-06] MEDS: ZINC SULFATE 220 MG ( 50 ) CAPSULE PO SCH (08:28)
[2018-11-06] MEDS: NYSTATIN POWDER 15GM TOP SCH ×2 (08:29→20:47)
[2018-11-06] MEDS: CYANOCOBALAMIN 1000MCG/ML VIAL IM SCH (08:29)
[2018-11-06] MEDS: ENOXAPARIN 40MG/0.4ML SYR SUBCUT SCH (08:31)
[2018-11-06] MEDS ORDERED: TRAMADOL 50MG TABLET PO PRN (19:00)
[2018-11-06 20:00] VITALS: BP 115/46
[2018-11-07] MEDS: DILTIAZEM HCL 60MG TABLET PO SCH ×4 (05:49→23:30)
[2018-11-07 08:10] VITALS: BP 105/54
[2018-11-07 08:14] LABS: 25-HYDROXY VITAMIN D3 32 ng/mL (.)
[2018-11-07] MEDS: ENOXAPARIN 40MG/0.4ML SYR SUBCUT SCH (08:15)
[2018-11-07] MEDS: FAMOTIDINE 20MG TABLET PO SCH (08:16)
[2018-11-07] MEDS: CYANOCOBALAMIN 1000MCG/ML VIAL IM SCH (08:16)
[2018-11-07] MEDS: ASCORBIC ACID 500 MG TABLET PO SCH ×2 (08:16→21:52)
[2018-11-07] MEDS: ZINC SULFATE 220 MG ( 50 ) CAPSULE PO SCH (08:16)
[2018-11-07] MEDS: MULTIVITAMINS,THER W-MINERALS TABLET PO SCH (08:16)
[2018-11-07] MEDS: ASPIRIN 325MG EC TABLET PO SCH (08:16)
[2018-11-07] MEDS: NYSTATIN POWDER 15GM TOP SCH ×2 (08:18→21:53)
[2018-11-07 09:20] LABS: BASOPHILS % 0.5 % (0.0-2.0); EOSINOPHILS % 2.6 % (0.0-5.0); HEMATOCRIT. 32.7 % (36.0-48.0); HEMOGLOBIN. 10.6 g/dL (12.0-16.0); MEAN CORPUSCULAR HEMOGLOBIN 27.9 pg (28.0-32.0); MEAN CORPUSCULAR VOLUME 86.4 fL (81.0-99.0); MEAN PLATELET VOLUME 8.7 fl (7.4-10.4); MONOCYTES % 5.2 % (2.0-8.0); NEUTROPHILS % 76.7 % (40.0-76.0); PLATELET 370 x1000/uL (130-400); RED BLOOD CELL COUNT 3.78 mill/uL (4.2-5.4); RED CELL DISTRIBUTION WIDTH 15.8 % (11.6-14.6)
[2018-11-07 09:45] LABS: PHOSPHORUS 3.8 mg/dL (2.5-4.9)
[2018-11-07] MEDS ORDERED: ERGOCALCIFEROL 50000UNITS CAPSULE PO SCH (14:00)
[2018-11-07 20:00] VITALS: BP 122/43
[2018-11-08] MEDS: DILTIAZEM HCL 60MG TABLET PO SCH ×3 (06:11→17:23)
[2018-11-08 08:06] VITALS: BP 139/66
[2018-11-08] MEDS: ASCORBIC ACID 500 MG TABLET PO SCH ×2 (08:46→21:30)
[2018-11-08] MEDS: MULTIVITAMINS,THER W-MINERALS TABLET PO SCH (08:46)
[2018-11-08] MEDS: ASPIRIN 325MG EC TABLET PO SCH (08:46)
[2018-11-08] MEDS: ZINC SULFATE 220 MG ( 50 ) CAPSULE PO SCH (08:46)
[2018-11-08] MEDS: FAMOTIDINE 20MG TABLET PO SCH (08:46)
[2018-11-08] MEDS: ENOXAPARIN 40MG/0.4ML SYR SUBCUT SCH (08:46)
[2018-11-08] MEDS: NYSTATIN POWDER 15GM TOP SCH ×2 (08:47→21:32)
[2018-11-08] MEDS: CYANOCOBALAMIN 1000MCG/ML VIAL IM SCH (08:47)
[2018-11-08 18:51] LABS: CLARITY URINE CLEAR (CLEAR); COLOR URINE YELLOW (YELLOW); KETONES URINE NEGATIVE (NEGATIVE); LEUKOCYTE ESTERASE URINE TRACE (NEGATIVE); NITRITE URINE NEGATIVE (NEGATIVE); OCCULT BLOOD URINE TRACE (NEGATIVE); PH URINE 5.5 (4.5-8.0); PROTEIN URINE NEGATIVE (NEGATIVE); SPECIFIC GRAVITY URINE 1.009 (1.005-1.030); UROBILINOGEN URINE 0.2 E.U./dL (0.2-1.0)
[2018-11-08 20:00] VITALS: BP 129/57
[2018-11-09] MEDS: DILTIAZEM HCL 60MG TABLET PO SCH ×5 (00:37→23:52)
[2018-11-09 07:25] LABS: BASOPHILS % 0.5 % (0.0-2.0); EOSINOPHILS % 2.3 % (0.0-5.0); HEMATOCRIT. 31.3 % (36.0-48.0); HEMOGLOBIN. 10.2 g/dL (12.0-16.0); LYMPHOCYTES % 15.6 % (20.0-50.0); MEAN CORPUSCULAR HEMOGLOBIN 27.9 pg (28.0-32.0); MEAN CORPUSCULAR VOLUME 85.4 fL (81.0-99.0); MONOCYTES % 6.6 % (2.0-8.0); PLATELET 452 x1000/uL (130-400); RED BLOOD CELL COUNT 3.67 mill/uL (4.2-5.4); RED CELL DISTRIBUTION WIDTH 15.8 % (11.6-14.6)
[2018-11-09 08:30] VITALS: BP 152/57
[2018-11-09] MEDS: FAMOTIDINE 20MG TABLET PO SCH (09:46)
[2018-11-09] MEDS: ASPIRIN 325MG EC TABLET PO SCH (09:46)
[2018-11-09] MEDS: MULTIVITAMINS,THER W-MINERALS TABLET PO SCH (09:46)
[2018-11-09] MEDS: ENOXAPARIN 40MG/0.4ML SYR SUBCUT SCH (09:46)
[2018-11-09] MEDS: ASCORBIC ACID 500 MG TABLET PO SCH ×2 (09:46→20:46)
[2018-11-09] MEDS: CYANOCOBALAMIN 1000MCG/ML VIAL IM SCH (09:46)
[2018-11-09] MEDS: ZINC SULFATE 220 MG ( 50 ) CAPSULE PO SCH (09:46)
[2018-11-09] MEDS: NYSTATIN POWDER 15GM TOP SCH ×2 (09:54→20:46)
[2018-11-09] MEDS: LACTULOSE 20G/30ML UDC PO SCH ×2 (15:21→21:11)
[2018-11-09 20:00] VITALS: BP 129/50
[2018-11-10] MEDS: DILTIAZEM HCL 60MG TABLET PO SCH ×3 (05:07→17:30)
[2018-11-10] MEDS: LACTULOSE 20G/30ML UDC PO SCH ×2 (05:07→17:30)
[2018-11-10 06:02] LABS: BASOPHILS % 0.5 % (0.0-2.0); EOSINOPHILS % 1.6 % (0.0-5.0); HEMATOCRIT. 32.7 % (36.0-48.0); HEMOGLOBIN. 10.6 g/dL (12.0-16.0); LYMPHOCYTES % 19.4 % (20.0-50.0); MEAN CORPUSCULAR HEMOGLOBIN 27.9 pg (28.0-32.0); MEAN CORPUSCULAR VOLUME 86.1 fL (81.0-99.0); MEAN PLATELET VOLUME 8.8 fl (7.4-10.4); NEUTROPHILS % 72.5 % (40.0-76.0); PLATELET 453 x1000/uL (130-400); RED BLOOD CELL COUNT 3.79 mill/uL (4.2-5.4)
[2018-11-10 07:42] LABS: CHLORIDE 103 mEq/L (98-107)
[2018-11-10 08:00] VITALS: BP 136/59
[2018-11-10] MEDS: ASPIRIN 325MG EC TABLET PO SCH (10:30)
[2018-11-10] MEDS: FAMOTIDINE 20MG TABLET PO SCH (10:30)
[2018-11-10] MEDS: MULTIVITAMINS,THER W-MINERALS TABLET PO SCH (10:30)
[2018-11-10] MEDS: ZINC SULFATE 220 MG ( 50 ) CAPSULE PO SCH (10:30)
[2018-11-10] MEDS: ASCORBIC ACID 500 MG TABLET PO SCH ×2 (10:30→21:13)
[2018-11-10] MEDS: NYSTATIN POWDER 15GM TOP SCH ×2 (10:31→21:13)
[2018-11-10] MEDS: ENOXAPARIN 40MG/0.4ML SYR SUBCUT SCH (10:31)
[2018-11-10] MEDS ORDERED: LIDOCAINE HCL/EPINEPHRINE 1%-EPI 1:100,000 20 ML VIAL INFIL NR (12:00)
[2018-11-10 20:00] VITALS: BP 111/61
[2018-11-11] MEDS: DILTIAZEM HCL 60MG TABLET PO SCH ×5 (00:04→23:34)
[2018-11-11 07:53] VITALS: BP 111/40
[2018-11-11] MEDS: MULTIVITAMINS,THER W-MINERALS TABLET PO SCH (08:52)
[2018-11-11] MEDS: ASCORBIC ACID 500 MG TABLET PO SCH ×2 (08:52→20:36)
[2018-11-11] MEDS: ASPIRIN 325MG EC TABLET PO SCH (08:52)
[2018-11-11] MEDS: ENOXAPARIN 40MG/0.4ML SYR SUBCUT SCH (08:52)
[2018-11-11] MEDS: ZINC SULFATE 220 MG ( 50 ) CAPSULE PO SCH (08:52)
[2018-11-11] MEDS: FAMOTIDINE 20MG TABLET PO SCH (08:52)
[2018-11-11] MEDS: NYSTATIN POWDER 15GM TOP SCH ×2 (08:53→20:36)
[2018-11-11] MEDS: LACTULOSE 20G/30ML UDC PO SCH (17:16)
[2018-11-11 20:00] VITALS: BP 135/64
[2018-11-12] MEDS: DILTIAZEM HCL 60MG TABLET PO SCH ×4 (06:02→23:26)
[2018-11-12 06:27] LABS: CHLORIDE 104 mEq/L (98-107)
[2018-11-12 06:36] LABS: PHOSPHORUS 4.1 mg/dL (2.5-4.9)
[2018-11-12 06:46] LABS: BASOPHILS % 0.4 % (0.0-2.0); HEMATOCRIT. 29.7 % (36.0-48.0); HEMOGLOBIN. 9.8 g/dL (12.0-16.0); LYMPHOCYTES % 11.5 % (20.0-50.0); MEAN CORPUSCULAR HEMOGLOBIN 28.3 pg (28.0-32.0); MEAN CORPUSCULAR VOLUME 85.9 fL (81.0-99.0); MEAN PLATELET VOLUME 8.5 fl (7.4-10.4); MONOCYTES % 6.2 % (2.0-8.0); NEUTROPHILS % 80.9 % (40.0-76.0); PLATELET 384 x1000/uL (130-400); RED BLOOD CELL COUNT 3.45 mill/uL (4.2-5.4); RED CELL DISTRIBUTION WIDTH 15.7 % (11.6-14.6)
[2018-11-12 08:01] VITALS: BP 136/60
[2018-11-12] MEDS: ASPIRIN 325MG EC TABLET PO SCH (08:17)
[2018-11-12] MEDS: FAMOTIDINE 20MG TABLET PO SCH (08:17)
[2018-11-12] MEDS: ASCORBIC ACID 500 MG TABLET PO SCH ×2 (08:17→21:04)
[2018-11-12] MEDS: ZINC SULFATE 220 MG ( 50 ) CAPSULE PO SCH (08:17)
[2018-11-12] MEDS: MULTIVITAMINS,THER W-MINERALS TABLET PO SCH (08:17)
[2018-11-12] MEDS: ACETAMINOPHEN 325MG TABLET PO PRN ×2 (08:18→17:55)
[2018-11-12] MEDS: ENOXAPARIN 40MG/0.4ML SYR SUBCUT SCH (08:20)
[2018-11-12] MEDS: NYSTATIN POWDER 15GM TOP SCH ×2 (08:24→21:04)
[2018-11-12] MEDS: LACTULOSE 20G/30ML UDC PO SCH (18:00)
[2018-11-12 20:00] VITALS: BP 114/45
[2018-11-12 21:39] LABS: CLARITY URINE CLOUDY (CLEAR); COLOR URINE YELLOW (YELLOW); KETONES URINE NEGATIVE (NEGATIVE); LEUKOCYTE ESTERASE URINE 1+ (NEGATIVE); NITRITE URINE NEGATIVE (NEGATIVE); OCCULT BLOOD URINE NEGATIVE (NEGATIVE); PROTEIN URINE NEGATIVE (NEGATIVE); SPECIFIC GRAVITY URINE 1.019 (1.005-1.030); UROBILINOGEN URINE 0.2 E.U./dL (0.2-1.0)
[2018-11-13] MEDS: DILTIAZEM HCL 60MG TABLET PO SCH ×2 (06:00→12:26)
[2018-11-13 06:10] LABS: BASOPHILS % 0.6 % (0.0-2.0); EOSINOPHILS % 1.6 % (0.0-5.0); HEMATOCRIT. 30.8 % (36.0-48.0); HEMOGLOBIN. 10.1 g/dL (12.0-16.0); LYMPHOCYTES % 14.3 % (20.0-50.0); MEAN CORPUSCULAR HEMOGLOBIN 28.1 pg (28.0-32.0); MEAN CORPUSCULAR VOLUME 85.6 fL (81.0-99.0); MEAN PLATELET VOLUME 8.5 fl (7.4-10.4); MONOCYTES % 4.7 % (2.0-8.0); NEUTROPHILS % 78.8 % (40.0-76.0); PLATELET 368 x1000/uL (130-400); RED CELL DISTRIBUTION WIDTH 15.9 % (11.6-14.6)
[2018-11-13] MEDS ORDERED: LEVOTHYROXINE SODIUM 25MCG TABLET PO SCH (07:00)
[2018-11-13 08:09] VITALS: BP 104/39
[2018-11-13] MEDS: ASPIRIN 325MG EC TABLET PO SCH (08:48)
[2018-11-13] MEDS: ZINC SULFATE 220 MG ( 50 ) CAPSULE PO SCH (08:48)
[2018-11-13] MEDS: ASCORBIC ACID 500 MG TABLET PO SCH (08:48)
[2018-11-13] MEDS: MULTIVITAMINS,THER W-MINERALS TABLET PO SCH (08:48)
[2018-11-13] MEDS: FAMOTIDINE 20MG TABLET PO SCH (08:48)
[2018-11-13] MEDS: ENOXAPARIN 40MG/0.4ML SYR SUBCUT SCH (08:49)
[2018-11-13] MEDS: NYSTATIN POWDER 15GM TOP SCH (08:51)
[2018-11-13 11:23] VITALS: BP 104/39
[2018-11-16] MEDS ORDERED: CYANOCOBALAMIN 1000MCG/ML VIAL IM SCH (09:00)
== END 2018-11-13 16:54 | DRG 40 ==
PROVIDERS: ADMIT Physical Medicine & Rehabilitation Spinal Cord Injury Medicine; ATTEND Internal Medicine
PROC: 0JB70ZZ Excision of Back Subcutaneous Tissue and Fascia, Open Approach (ICD-10-PCS; principal; 2018-11-10)
DX: G92 Toxic encephalopathy (principal); L89.153 Pressure ulcer of sacral region, stage 3; E43 Unspecified severe protein-calorie malnutrition; A41.9 Sepsis, unspecified organism; G82.50 Quadriplegia, unspecified; M62.82 Rhabdomyolysis; N17.9 Acute kidney failure, unspecified; N39.0 Urinary tract infection, site not specified; B49 Unspecified mycosis; Z68.41 Body mass index [BMI] 40.0-44.9, adult; D63.8 Anemia in other chronic diseases classified elsewhere; I12.9 Hypertensive chronic kidney disease with stage 1 through stage 4 chronic kidney disease, or unspecified chronic kidney disease; R74.0 Nonspecific elevation of levels of transaminase and lactic acid dehydrogenase [LDH]; M48.02 Spinal stenosis, cervical region; R53.81 Other malaise; M48.061 Spinal stenosis, lumbar region without neurogenic claudication; L98.429 Non-pressure chronic ulcer of back with unspecified severity; E78.00 Pure hypercholesterolemia, unspecified; G31.84 Mild cognitive impairment of uncertain or unknown etiology; N18.3 Chronic kidney disease, stage 3 (moderate); E83.51 Hypocalcemia; M50.30 Other cervical disc degeneration, unspecified cervical region; M51.36 Other intervertebral disc degeneration, lumbar region; R13.10 Dysphagia, unspecified; R94.5 Abnormal results of liver function studies; F06.31 Mood disorder due to known physiological condition with depressive features; Z87.440 Personal history of urinary (tract) infections; Z86.73 Personal history of transient ischemic attack (TIA), and cerebral infarction without residual deficits; Z83.3 Family history of diabetes mellitus; Z80.9 Family history of malignant neoplasm, unspecified; Z90.710 Acquired absence of both cervix and uterus; D50.9 Iron deficiency anemia, unspecified
CPT/HCPCS: 36415; 71046; 80048; 80061; 82140; 82306; 82550; 82607; 82728; 82746; 83036; 83540; 83550; 83735; 83935; 84100; 84134; 84439; 84443; 84481; 86376; 87106; 92523; 97110; 97162; 97167; 97530; 97535; A4565; A6261; C1893; J0696; J1650; J1956; J3420; J3475; J3490; J7050; A5200

== ENCOUNTER 2019-02-03 15:45 | Inpatient (IN) | payer MEDICARE, MEDICAID ==
[~2019-02-03] VITALS: Ht 165.1 cm; Wt 97.1 kg
[2019-02-03] MEDS ORDERED: SODIUM CHLORIDE 0.9% 1,000 ML IV ONE (16:08)
[2019-02-03] MEDS ORDERED: MORPHINE SULFATE 4 MG/ML CPJ (NOT FOR IM USE) IV STA (16:08)
[2019-02-03] MEDS ORDERED: ONDANSETRON HCL 4MG/2ML INJ IV STA (16:08)
[2019-02-03 16:37] LABS: BASOPHILS % 0.4 % (0.0-2.0); HEMATOCRIT. 40.8 % (36.0-48.0); HEMOGLOBIN. 13.4 g/dL (12.0-16.0); LYMPHOCYTES % 7.3 % (20.0-50.0); MEAN CORPUSCULAR HEMOGLOBIN 27.8 pg (28.0-32.0); MEAN CORPUSCULAR VOLUME 84.8 fL (81.0-99.0); MEAN PLATELET VOLUME 8.3 fl (7.4-10.4); MONOCYTES % 5.7 % (2.0-8.0); NEUTROPHILS % 86.6 % (40.0-76.0); PLATELET 415 x1000/uL (130-400); RED BLOOD CELL COUNT 4.81 mill/uL (4.2-5.4)
[2019-02-03 16:38] LABS: CHLORIDE 96 mEq/L (98-107)
[2019-02-03 16:49] LABS: INR 1.1; PARTIAL THROMBOPLASTIN TIME 25.8 sec (23.4-31.0)
[2019-02-03] MEDS ORDERED: SODIUM CHLORIDE 0.9% 1000ML BAG (SEPSIS BOLUS) IV ONE (17:45)
[2019-02-03] MEDS ORDERED: METRONIDAZOLE 500 MG PREMIX 100 ML IV ONE (18:00)
[2019-02-03] MEDS ORDERED: LEVOFLOXACIN 750MG PREMIX 150 ML IV ONE (18:00)
[2019-02-03 18:46] LABS: CLARITY URINE TURBID (CLEAR); COLOR URINE DARK YELLOW (YELLOW); KETONES URINE TRACE (NEGATIVE); LEUKOCYTE ESTERASE URINE 3+ (NEGATIVE); NITRITE URINE POSITIVE (NEGATIVE); OCCULT BLOOD URINE 1+ (NEGATIVE); PH URINE 7.5 (4.5-8.0); PROTEIN URINE 2+ (NEGATIVE); SPECIFIC GRAVITY URINE 1.023 (1.005-1.030)
[2019-02-03] MEDS ORDERED: HYDRALAZINE 20MG/ML VIAL IV PRN (19:30)
[2019-02-03] MEDS ORDERED: LEVOFLOXACIN 500MG PREMIX 100 ML IV SCH (19:30)
[2019-02-03] MEDS ORDERED: IPRATROPIUM/ALBUTEROL 0.5-3(2.5)MG/3ML NEB INH PRN (19:30)
[2019-02-03] MEDS ORDERED: DEXT 5%/LACTATED RINGERS 1,000 ML IV SCH (22:00)
[2019-02-03] MEDS ORDERED: ENOXAPARIN 40MG/0.4ML SYR SUBCUT SCH (23:00)
[2019-02-03] MEDS: FAMOTIDINE 20MG/2ML VIAL IV SCH (23:06)
[2019-02-03] MEDS: CEFTRIAXONE 1 G PREMIX 50 ML IV SCH (23:51)
[2019-02-04 00:20] VITALS: BP 116/56
[2019-02-04 01:37] VITALS: BP 122/70
[2019-02-04 04:00] VITALS: BP 108/39
[2019-02-04] MEDS: MORPHINE SULFATE 2 MG/ML CPJ (NOT FOR IM USE) IV PRN (06:11)
[2019-02-04 08:00] VITALS: BP 164/85
[2019-02-04] MEDS ORDERED: DIATR MEGLU/DIATRIZOATE SOLN 30ML PO NR (08:30)
[2019-02-04] MEDS: FAMOTIDINE 20MG/2ML VIAL IV SCH (09:44)
[2019-02-04] MEDS: ONDANSETRON HCL 4MG/2ML INJ IV PRN (10:18)
[2019-02-04 12:00] VITALS: BP 136/62
[2019-02-04 12:12] LABS: CHLORIDE 100 mEq/L (98-107)
[2019-02-04 12:14] LABS: BASOPHILS % 0.3 % (0.0-2.0); EOSINOPHILS % 0.4 % (0.0-5.0); HEMOGLOBIN. 11.4 g/dL (12.0-16.0); LYMPHOCYTES % 9.5 % (20.0-50.0); MEAN CORPUSCULAR HEMOGLOBIN 27.8 pg (28.0-32.0); MEAN CORPUSCULAR VOLUME 85.5 fL (81.0-99.0); MEAN PLATELET VOLUME 8.8 fl (7.4-10.4); MONOCYTES % 4.8 % (2.0-8.0); PLATELET 370 x1000/uL (130-400); RED BLOOD CELL COUNT 4.09 mill/uL (4.2-5.4); RED CELL DISTRIBUTION WIDTH 17.1 % (11.6-14.6)
[2019-02-04] MEDS: SODIUM CHLORIDE 0.9% 1,000 ML IV SCH (13:49)
[2019-02-04 20:00] VITALS: BP 143/73
[2019-02-04] MEDS: ENOXAPARIN 30MG/0.3ML SYR SUBCUT SCH (20:37)
[2019-02-04] MEDS: LEVOFLOXACIN 250MG PREMIX 50 ML IV SCH (20:38)
[2019-02-04] MEDS: CEFTRIAXONE 1 G PREMIX 50 ML IV SCH (23:45)
[2019-02-05] VITALS: BP 148/77
[2019-02-05] MEDS: ONDANSETRON HCL 4MG/2ML INJ IV PRN (03:10)
[2019-02-05 04:00] VITALS: BP 154/86
[2019-02-05] MEDS: SODIUM CHLORIDE 0.9% 1,000 ML IV SCH ×2 (05:26→21:15)
[2019-02-05 08:00] VITALS: BP 146/71
[2019-02-05 08:56] LABS: BASOPHILS % 0.2 % (0.0-2.0); EOSINOPHILS % 0.3 % (0.0-5.0); HEMATOCRIT. 37.6 % (36.0-48.0); HEMOGLOBIN. 12.2 g/dL (12.0-16.0); LYMPHOCYTES % 7.2 % (20.0-50.0); MEAN CORPUSCULAR HEMOGLOBIN 27.8 pg (28.0-32.0); MEAN CORPUSCULAR VOLUME 85.9 fL (81.0-99.0); MEAN PLATELET VOLUME 8.8 fl (7.4-10.4); MONOCYTES % 6.8 % (2.0-8.0); NEUTROPHILS % 85.5 % (40.0-76.0); PLATELET 363 x1000/uL (130-400); RED BLOOD CELL COUNT 4.38 mill/uL (4.2-5.4); RED CELL DISTRIBUTION WIDTH 17.3 % (11.6-14.6)
[2019-02-05] MEDS: FAMOTIDINE 20MG/2ML VIAL IV SCH (09:27)
[2019-02-05 09:30] LABS: PHOSPHORUS 3.1 mg/dL (2.5-4.9)
[2019-02-05 12:00] VITALS: BP 131/67
[2019-02-05] MEDS: MORPHINE SULFATE 2 MG/ML CPJ (NOT FOR IM USE) IV PRN (13:32)
[2019-02-05 16:00] VITALS: BP 130/66
[2019-02-05 20:10] VITALS: BP 158/59
[2019-02-05] MEDS: ENOXAPARIN 30MG/0.3ML SYR SUBCUT SCH (21:13)
[2019-02-05] MEDS: LEVOFLOXACIN 250MG PREMIX 50 ML IV SCH (21:14)
[2019-02-06] MEDS: SODIUM CHLORIDE 0.9% 1,000 ML IV SCH ×2 (03:15→16:02)
[2019-02-06] MEDS: CEFTRIAXONE 1 G PREMIX 50 ML IV SCH ×2 (03:26→22:30)
[2019-02-06 04:00] VITALS: BP 131/76
[2019-02-06 06:55] LABS: BASOPHILS % 0.4 % (0.0-2.0); HEMATOCRIT. 39.5 % (36.0-48.0); HEMOGLOBIN. 12.9 g/dL (12.0-16.0); LYMPHOCYTES % 15.4 % (20.0-50.0); MEAN CORPUSCULAR HEMOGLOBIN 28.1 pg (28.0-32.0); MEAN CORPUSCULAR VOLUME 86.1 fL (81.0-99.0); MEAN PLATELET VOLUME 8.8 fl (7.4-10.4); MONOCYTES % 7.2 % (2.0-8.0); PLATELET 323 x1000/uL (130-400); RED BLOOD CELL COUNT 4.59 mill/uL (4.2-5.4); RED CELL DISTRIBUTION WIDTH 17.1 % (11.6-14.6)
[2019-02-06 07:52] LABS: PHOSPHORUS 3.1 mg/dL (2.5-4.9)
[2019-02-06 08:00] VITALS: BP 132/49
[2019-02-06] MEDS: FAMOTIDINE 20MG/2ML VIAL IV SCH (09:35)
[2019-02-06 12:00] VITALS: BP 136/72
[2019-02-06] MEDS: NYSTATIN 100,000 UNITS/ML 5ML UDC SSW SCH ×2 (14:46→18:00)
[2019-02-06 16:00] VITALS: BP 158/63
[2019-02-06] MEDS: AMPICILLIN 500MG in SODIUM CHLORIDE 0.9% 50ML IV SCH (17:25)
[2019-02-06 20:00] VITALS: BP 131/77
[2019-02-06] MEDS: ENOXAPARIN 30MG/0.3ML SYR SUBCUT SCH (22:31)
[2019-02-07] VITALS: BP 124/68
[2019-02-07] MEDS: AMPICILLIN 500MG in SODIUM CHLORIDE 0.9% 50ML IV SCH ×4 (01:18→22:52)
[2019-02-07] MEDS: NYSTATIN 100,000 UNITS/ML 5ML UDC SSW SCH ×3 (03:32→17:40)
[2019-02-07 04:00] VITALS: BP 160/72
[2019-02-07] MEDS: SODIUM CHLORIDE 0.9% 1,000 ML IV SCH ×2 (06:00→17:51)
[2019-02-07] MEDS: MORPHINE SULFATE 2 MG/ML CPJ (NOT FOR IM USE) IV PRN (06:01)
[2019-02-07 07:51] VITALS: BP 141/96
[2019-02-07] MEDS: FAMOTIDINE 20MG/2ML VIAL IV SCH (07:51)
[2019-02-07 11:40] LABS: BASOPHILS % 0.3 % (0.0-2.0); EOSINOPHILS % 0.8 % (0.0-5.0); HEMATOCRIT. 31.5 % (36.0-48.0); HEMOGLOBIN. 10.2 g/dL (12.0-16.0); LYMPHOCYTES % 11.6 % (20.0-50.0); MEAN CORPUSCULAR HEMOGLOBIN 27.7 pg (28.0-32.0); MEAN CORPUSCULAR VOLUME 85.6 fL (81.0-99.0); MEAN PLATELET VOLUME 9.3 fl (7.4-10.4); MONOCYTES % 8.6 % (2.0-8.0); NEUTROPHILS % 78.7 % (40.0-76.0); PLATELET 354 x1000/uL (130-400); RED BLOOD CELL COUNT 3.68 mill/uL (4.2-5.4); RED CELL DISTRIBUTION WIDTH 17.1 % (11.6-14.6)
[2019-02-07 12:14] LABS: CHLORIDE 108 mEq/L (98-107)
[2019-02-07 12:29] VITALS: BP 136/47
[2019-02-07] MEDS ORDERED: KCL 20MEQ/100ML PREMIX 100 ML IV NR (14:00)
[2019-02-07 15:49] VITALS: BP 148/73
[2019-02-07 20:00] VITALS: BP 140/49
[2019-02-07] MEDS: ENOXAPARIN 30MG/0.3ML SYR SUBCUT SCH (20:54)
[2019-02-07] MEDS: CEFTRIAXONE 1 G PREMIX 50 ML IV SCH (20:54)
[2019-02-08] VITALS (7 sets, daily range): BP systolic 105–146; BP diastolic 34–62
[2019-02-08] MEDS: NYSTATIN 100,000 UNITS/ML 5ML UDC SSW SCH ×3 (01:30→17:13)
[2019-02-08] MEDS: AMPICILLIN 500MG in SODIUM CHLORIDE 0.9% 50ML IV SCH ×3 (05:41→22:18)
[2019-02-08] MEDS: FAMOTIDINE 20MG/2ML VIAL IV SCH (08:11)
[2019-02-08 09:35] LABS: BASOPHILS % 0.2 % (0.0-2.0); EOSINOPHILS % 1.6 % (0.0-5.0); HEMATOCRIT. 30.3 % (36.0-48.0); HEMOGLOBIN. 9.8 g/dL (12.0-16.0); MEAN CORPUSCULAR HEMOGLOBIN 27.5 pg (28.0-32.0); MEAN PLATELET VOLUME 8.7 fl (7.4-10.4); NEUTROPHILS % 82.2 % (40.0-76.0); PLATELET 354 x1000/uL (130-400); RED BLOOD CELL COUNT 3.57 mill/uL (4.2-5.4); RED CELL DISTRIBUTION WIDTH 17.1 % (11.6-14.6)
[2019-02-08] MEDS: SODIUM CHLORIDE 0.9% 1,000 ML IV SCH (09:41)
[2019-02-08 10:00] LABS: PHOSPHORUS 2.6 mg/dL (2.5-4.9)
[2019-02-08] MEDS: SODIUM CHL 0.9% + KCL 20MEQ/L 1,000 ML IV SCH (14:21)
[2019-02-08] MEDS: CEFTRIAXONE 1 G PREMIX 50 ML IV SCH (20:52)
[2019-02-08] MEDS: ENOXAPARIN 30MG/0.3ML SYR SUBCUT SCH (21:00)
[2019-02-09] VITALS: BP 162/85
[2019-02-09] MEDS: NYSTATIN 100,000 UNITS/ML 5ML UDC SSW SCH ×3 (02:00→18:00)
[2019-02-09] MEDS: SODIUM CHL 0.9% + KCL 20MEQ/L 1,000 ML IV SCH (02:34)
[2019-02-09 04:00] VITALS: BP 144/69
[2019-02-09 05:08] LABS: BASOPHILS % 0.3 % (0.0-2.0); EOSINOPHILS % 1.6 % (0.0-5.0); HEMATOCRIT. 32.8 % (36.0-48.0); HEMOGLOBIN. 10.5 g/dL (12.0-16.0); LYMPHOCYTES % 9.9 % (20.0-50.0); MEAN CORPUSCULAR HEMOGLOBIN 27.5 pg (28.0-32.0); MEAN CORPUSCULAR VOLUME 85.8 fL (81.0-99.0); NEUTROPHILS % 82.2 % (40.0-76.0); PLATELET 363 x1000/uL (130-400); RED BLOOD CELL COUNT 3.83 mill/uL (4.2-5.4); RED CELL DISTRIBUTION WIDTH 17.3 % (11.6-14.6)
[2019-02-09] MEDS: AMPICILLIN 500MG in SODIUM CHLORIDE 0.9% 50ML IV SCH ×3 (05:51→21:43)
[2019-02-09 06:45] LABS: CHLORIDE 113 mEq/L (98-107)
[2019-02-09 06:55] LABS: PHOSPHORUS 2.3 mg/dL (2.5-4.9)
[2019-02-09] MEDS ORDERED: BUPIVACAINE HCL 0.5% (5MG/ML) 50ML ONE (07:06)
[2019-02-09] MEDS ORDERED: BACITRACIN 50,000 UNITS/VIAL ONE (07:06)
[2019-02-09] MEDS ORDERED: MIDAZOLAM HCL 2 MG/2 ML VIAL ONE (07:48)
[2019-02-09] MEDS ORDERED: FENTANYL CITRATE/PF 50MCG/ML 2ML VIAL ONE (07:48)
[2019-02-09] MEDS ORDERED: ROCURONIUM BROMIDE 10MG/ML VIAL 5ML IV ONE (07:48)
[2019-02-09] MEDS ORDERED: ETOMIDATE 2MG/ML 10ML VIAL IV ONE (08:09)
[2019-02-09] MEDS ORDERED: CEFAZOLIN 1000MG PREMIX 50 ML IV SCH (08:15)
[2019-02-09] MEDS ORDERED: MORPHINE SULFATE 2 MG/ML CPJ (NOT FOR IM USE) IV PRN (08:15)
[2019-02-09] MEDS ORDERED: ONDANSETRON HCL 4MG/2ML INJ IV PRN (08:15)
[2019-02-09] MEDS ORDERED: PHENYLEPHRINE HCL 10 MG/ML 1ML (IV VIAL) IV ONE ×2 (08:32→09:14)
[2019-02-09] MEDS ORDERED: DEXAMETHASONE 4MG/ML 1ML VIAL ONE (08:32)
[2019-02-09] MEDS ORDERED: SODIUM CHLORIDE 0.9% 10ML VIAL ONE (08:38)
[2019-02-09] MEDS ORDERED: FAMOTIDINE 20MG/2ML VIAL IV SCH (09:00)
[2019-02-09] MEDS: FAMOTIDINE 20MG/2ML VIAL IV SCH (09:00)
[2019-02-09] MEDS ORDERED: GLYCOPYRROLATE 0.2 MG/ML 2ML VIAL ONE (09:06)
[2019-02-09] MEDS ORDERED: NEOSTIGMINE METHYLSULFATE 1MG/ML 10 ML VIAL ONE (09:06)
[2019-02-09] MEDS ORDERED: FLUMAZENIL 0.1 MG/ML 5ML VIAL IV ONE (09:06)
[2019-02-09] MEDS ORDERED: DEXT 5%/0.45% NACL KCL 20MEQ/L 1,000 ML IV SCH (10:30)
[2019-02-09] MEDS: HYDROMORPHONE HCL/PF 2MG/ML CPJ IV PRN ×2 (11:14→11:28)
[2019-02-09 12:00] VITALS: BP 104/43
[2019-02-09] MEDS ORDERED: POTASSIUM PHOS,M-BASIC-D-BASIC 20 MMOL in DEXT 5% WATER 243.3333 ML IV SCH (14:00)
[2019-02-09] MEDS: DEXT 5%/0.45% NACL KCL 20MEQ/L 1,000 ML IV SCH (14:59)
[2019-02-09 16:00] VITALS: BP 129/53
[2019-02-09] MEDS ORDERED: IPRATROPIUM/ALBUTEROL 0.5-3(2.5)MG/3ML NEB HHN PRN (18:30)
[2019-02-09 18:51] LABS: BG BASE EXCESS -5.7 mmol/L (-2.0-2.0); BG CARBOXYHEMOGLOBIN 0.2 % (0.5-1.5); BG FRACTION INSPIRED OXYGEN 32; BG HCO3 ACT 18.7 mmol/L (22.0-26.0); BG METHEMOGLOBIN 0.5 % (0.0-1.5); BG OXYHEMOGLOBIN 97.3 % (94.0-97.0); BG PCO2 33.1 mmHg (35.0-45.0); BG SAMPLE SITE RIGHT RADIAL; BG TOTAL HEMOGLOBIN 12.4 g/dL (12.0-18.0); BG VENT MODE NASAL CANNULA
[2019-02-09 20:00] VITALS: BP 118/59
[2019-02-09] MEDS: CEFTRIAXONE 1 G PREMIX 50 ML IV SCH (20:27)
[2019-02-09] MEDS: ENOXAPARIN 30MG/0.3ML SYR SUBCUT SCH (20:41)
[2019-02-09] MEDS: IPRATROPIUM/ALBUTEROL 0.5-3(2.5)MG/3ML NEB HHN SCH (20:49)
[2019-02-10] VITALS: BP 114/64
[2019-02-10] MEDS: IPRATROPIUM/ALBUTEROL 0.5-3(2.5)MG/3ML NEB HHN SCH ×5 (01:38→20:15)
[2019-02-10] MEDS: NYSTATIN 100,000 UNITS/ML 5ML UDC SSW SCH ×3 (02:00→18:42)
[2019-02-10 04:00] VITALS: BP 126/56
[2019-02-10] MEDS: DEXT 5%/0.45% NACL KCL 20MEQ/L 1,000 ML IV SCH (05:44)
[2019-02-10] MEDS: AMPICILLIN 500MG in SODIUM CHLORIDE 0.9% 50ML IV SCH ×3 (05:48→23:06)
[2019-02-10 06:37] LABS: HEMATOCRIT. 35.5 % (36.0-48.0); HEMOGLOBIN. 11.3 g/dL (12.0-16.0); MEAN CORPUSCULAR HEMOGLOBIN 27.6 pg (28.0-32.0); MEAN CORPUSCULAR VOLUME 86.6 fL (81.0-99.0); MEAN PLATELET VOLUME 9.5 fl (7.4-10.4); PLATELET 262 x1000/uL (130-400); RED CELL DISTRIBUTION WIDTH 17.5 % (11.6-14.6)
[2019-02-10 07:03] LABS: CHLORIDE 113 mEq/L (98-107)
[2019-02-10 07:19] LABS: PHOSPHORUS 3.8 mg/dL (2.5-4.9)
[2019-02-10 08:00] VITALS: BP 124/61
[2019-02-10] MEDS: ENOXAPARIN 30MG/0.3ML SYR SUBCUT SCH (09:48)
[2019-02-10] MEDS: FAMOTIDINE 20MG/2ML VIAL IV SCH (09:48)
[2019-02-10 12:00] VITALS: BP 123/62
[2019-02-10 13:05] LABS: ATYPICAL LYMPHOCYTES 1; PLATELET ESTIMATE NORMAL
[2019-02-10 14:16] LABS: BG CARBOXYHEMOGLOBIN 0.3 % (0.5-1.5); BG FRACTION INSPIRED OXYGEN 28; BG METHEMOGLOBIN 0.3 % (0.0-1.5); BG OXYHEMOGLOBIN 97.4 % (94.0-97.0); BG PCO2 32.3 mmHg (35.0-45.0); BG PH 7.409 (7.350-7.450); BG PO2 118.5 mmHg (75.0-100.0); BG SAMPLE SITE RIGHT BRACHIAL; BG TOTAL HEMOGLOBIN 10.2 g/dL (12.0-18.0); BG VENT MODE NASAL CANNULA
[2019-02-10 16:00] VITALS: BP 121/49
[2019-02-10] MEDS: SODIUM CHLORIDE 0.45% 1,000 ML IV SCH (16:53)
[2019-02-10 20:00] VITALS: BP 145/49
[2019-02-10] MEDS: CEFTRIAXONE 1 G PREMIX 50 ML IV SCH (21:00)
[2019-02-11 00:55] VITALS: BP 121/63
[2019-02-11] MEDS: IPRATROPIUM/ALBUTEROL 0.5-3(2.5)MG/3ML NEB HHN SCH ×4 (01:49→21:32)
[2019-02-11] MEDS: NYSTATIN 100,000 UNITS/ML 5ML UDC SSW SCH ×3 (02:00→18:00)
[2019-02-11] MEDS: SODIUM CHLORIDE 0.45% 1,000 ML IV SCH ×2 (02:11→09:30)
[2019-02-11 04:00] VITALS: BP 114/60
[2019-02-11] MEDS: AMPICILLIN 500MG in SODIUM CHLORIDE 0.9% 50ML IV SCH ×3 (05:50→22:32)
[2019-02-11 07:44] LABS: CHLORIDE 115 mEq/L (98-107)
[2019-02-11 07:49] LABS: MEAN CORPUSCULAR HEMOGLOBIN 27.9 pg (28.0-32.0); MEAN CORPUSCULAR VOLUME 84.4 fL (81.0-99.0); MEAN PLATELET VOLUME 9.2 fl (7.4-10.4); PLATELET 270 x1000/uL (130-400); RED BLOOD CELL COUNT 3.18 mill/uL (4.2-5.4); RED CELL DISTRIBUTION WIDTH 16.9 % (11.6-14.6)
[2019-02-11 07:52] LABS: PHOSPHORUS 3.1 mg/dL (2.5-4.9)
[2019-02-11 08:00] VITALS: BP 137/61
[2019-02-11 08:11] LABS: HEMATOCRIT. 26.8 % (36.0-48.0); HEMOGLOBIN. 8.9 g/dL (12.0-16.0)
[2019-02-11] MEDS: FAMOTIDINE 20MG/2ML VIAL IV SCH (09:26)
[2019-02-11] MEDS: ENOXAPARIN 30MG/0.3ML SYR SUBCUT SCH (09:27)
[2019-02-11 12:00] VITALS: BP 129/74
[2019-02-11] MEDS: DEXT 5%/0.2% NACL 1,000 ML IV SCH ×2 (12:07→22:32)
[2019-02-11] MEDS: SODIUM HYPOCHLORITE 0.125% 473ML SOLUTION TOP SCH (14:00)
[2019-02-11 14:32] LABS: PLATELET ESTIMATE NORMAL
[2019-02-11 16:00] VITALS: BP 138/67
[2019-02-11 20:00] VITALS: BP 136/52
[2019-02-12] VITALS: BP 125/54
[2019-02-12] MEDS: IPRATROPIUM/ALBUTEROL 0.5-3(2.5)MG/3ML NEB HHN SCH (01:18)
[2019-02-12 04:00] VITALS: BP 127/51
[2019-02-12] MEDS: NYSTATIN 100,000 UNITS/ML 5ML UDC SSW SCH ×3 (04:30→18:10)
[2019-02-12 05:37] LABS: HEMATOCRIT. 30.4 % (36.0-48.0); HEMOGLOBIN. 9.7 g/dL (12.0-16.0); MEAN CORPUSCULAR HEMOGLOBIN 27.4 pg (28.0-32.0); MEAN CORPUSCULAR VOLUME 85.9 fL (81.0-99.0); MEAN PLATELET VOLUME 8.7 fl (7.4-10.4); PLATELET 237 x1000/uL (130-400); RED BLOOD CELL COUNT 3.54 mill/uL (4.2-5.4); RED CELL DISTRIBUTION WIDTH 17.8 % (11.6-14.6)
[2019-02-12 05:48] LABS: PHOSPHORUS 2.7 mg/dL (2.5-4.9)
[2019-02-12] MEDS: AMPICILLIN 500MG in SODIUM CHLORIDE 0.9% 50ML IV SCH ×3 (06:32→21:01)
[2019-02-12 08:47] VITALS: BP 136/71
[2019-02-12 09:00] LABS: PLATELET ESTIMATE NORMAL
[2019-02-12] MEDS: SODIUM HYPOCHLORITE 0.125% 473ML SOLUTION TOP SCH (09:26)
[2019-02-12] MEDS: FAMOTIDINE 20MG/2ML VIAL IV SCH (09:26)
[2019-02-12] MEDS: ENOXAPARIN 30MG/0.3ML SYR SUBCUT SCH (09:26)
[2019-02-12] MEDS: DEXT 5%/0.2% NACL 1,000 ML IV SCH ×2 (09:29→21:20)
[2019-02-12 12:57] VITALS: BP 143/52
[2019-02-12] MEDS ORDERED: MAGNESIUM 2 G PREMIX 50 ML IV NR (14:00)
[2019-02-12 15:26] VITALS: BP 120/44
[2019-02-12 20:00] VITALS: BP 155/63
[2019-02-13] VITALS: BP 157/59
[2019-02-13] MEDS: NYSTATIN 100,000 UNITS/ML 5ML UDC SSW SCH ×2 (02:50→10:43)
[2019-02-13] MEDS: DEXT 5%/0.2% NACL 1,000 ML IV SCH ×2 (02:52→16:13)
[2019-02-13 04:00] VITALS: BP 142/66
[2019-02-13] MEDS: AMPICILLIN 500MG in SODIUM CHLORIDE 0.9% 50ML IV SCH ×3 (05:22→21:59)
[2019-02-13 08:03] VITALS: BP 126/56
[2019-02-13] MEDS: FAMOTIDINE 20MG/2ML VIAL IV SCH (09:19)
[2019-02-13] MEDS: ENOXAPARIN 30MG/0.3ML SYR SUBCUT SCH (09:19)
[2019-02-13] MEDS: SODIUM HYPOCHLORITE 0.125% 473ML SOLUTION TOP SCH (09:23)
[2019-02-13 10:40] LABS: BASOPHILS % 0.6 % (0.0-2.0); EOSINOPHILS % 1.8 % (0.0-5.0); HEMATOCRIT. 28.6 % (36.0-48.0); HEMOGLOBIN. 9.4 g/dL (12.0-16.0); LYMPHOCYTES % 7.5 % (20.0-50.0); MEAN CORPUSCULAR HEMOGLOBIN 27.9 pg (28.0-32.0); MEAN CORPUSCULAR VOLUME 84.8 fL (81.0-99.0); MEAN PLATELET VOLUME 8.8 fl (7.4-10.4); MONOCYTES % 3.1 % (2.0-8.0); PLATELET 133 x1000/uL (130-400); RED BLOOD CELL COUNT 3.38 mill/uL (4.2-5.4); RED CELL DISTRIBUTION WIDTH 16.7 % (11.6-14.6)
[2019-02-13 11:55] VITALS: BP 130/54
[2019-02-13 13:25] LABS: PHOSPHORUS 2.7 mg/dL (2.5-4.9)
[2019-02-13 15:17] LABS: INR 1.4
[2019-02-13 15:31] LABS: CHLORIDE 106 mEq/L (98-107)
[2019-02-13 16:04] VITALS: BP 129/63
[2019-02-13 20:00] VITALS: BP 153/67
[2019-02-14 00:47] VITALS: BP 109/48
[2019-02-14] MEDS: IPRATROPIUM/ALBUTEROL 0.5-3(2.5)MG/3ML NEB HHN SCH ×4 (01:45→21:15)
[2019-02-14] MEDS: DEXT 5%/0.2% NACL 1,000 ML IV SCH ×2 (01:57→21:00)
[2019-02-14 04:00] VITALS: BP 112/48
[2019-02-14] MEDS: SODIUM HYPOCHLORITE 0.125% 473ML SOLUTION TOP SCH (04:28)
[2019-02-14 06:50] LABS: BASOPHILS % 0.2 % (0.0-2.0); EOSINOPHILS % 0.7 % (0.0-5.0); HEMATOCRIT. 28.3 % (36.0-48.0); HEMOGLOBIN. 9.2 g/dL (12.0-16.0); LYMPHOCYTES % 7.5 % (20.0-50.0); MEAN CORPUSCULAR HEMOGLOBIN 27.7 pg (28.0-32.0); MEAN CORPUSCULAR VOLUME 84.8 fL (81.0-99.0); MEAN PLATELET VOLUME 8.5 fl (7.4-10.4); NEUTROPHILS % 86.6 % (40.0-76.0); PLATELET 178 x1000/uL (130-400); RED BLOOD CELL COUNT 3.34 mill/uL (4.2-5.4); RED CELL DISTRIBUTION WIDTH 16.5 % (11.6-14.6)
[2019-02-14 08:00] VITALS: BP 109/57
[2019-02-14 08:05] LABS: PHOSPHORUS 2.6 mg/dL (2.5-4.9)
[2019-02-14] MEDS: FAMOTIDINE 20MG/2ML VIAL IV SCH (08:51)
[2019-02-14] MEDS: ENOXAPARIN 30MG/0.3ML SYR SUBCUT SCH (08:52)
[2019-02-14] MEDS ORDERED: MAGNESIUM 2 G PREMIX 50 ML IV NR (11:30)
[2019-02-14] MEDS ORDERED: KCL 20MEQ/100ML PREMIX 100 ML IV NR (11:30)
[2019-02-14 12:00] VITALS: BP 111/31
[2019-02-14] MEDS ORDERED: DEXT 5%/0.2% NACL 1,000 ML IV SCH (13:00)
[2019-02-14] MEDS ORDERED: PHYTONADIONE 10MG/ML AMP SUBCUT NR (13:30)
[2019-02-14 16:00] VITALS: BP 93/73
[2019-02-14 20:00] VITALS: BP 115/66
[2019-02-14] MEDS ORDERED: TOTAL PARENTERAL NUTRITION 1,000 ML IV SCH (21:00)
[2019-02-14 22:21] LABS: INR 1.3; PARTIAL THROMBOPLASTIN TIME 27.8 sec (23.4-31.0); PROTHROMBIN TIME 13.2 sec (9.6-11.0)
[2019-02-14 22:33] LABS: HDL CHOLESTEROL 10 mg/dL (40-59); LDL CHOLESTEROL 31 mg/dL (5-100)
[2019-02-14] MEDS: BLOOD SUGAR DIAGNOSTIC STRIP TEST SCH (23:36)
[2019-02-15] VITALS: BP 114/56
[2019-02-15] MEDS: IPRATROPIUM/ALBUTEROL 0.5-3(2.5)MG/3ML NEB HHN SCH ×4 (01:36→20:13)
[2019-02-15 04:00] VITALS: BP 119/49
[2019-02-15] MEDS: BLOOD SUGAR DIAGNOSTIC STRIP TEST SCH ×3 (05:17→18:42)
[2019-02-15 06:19] LABS: BASOPHILS % 0.1 % (0.0-2.0); EOSINOPHILS % 0.6 % (0.0-5.0); HEMATOCRIT. 26.7 % (36.0-48.0); HEMOGLOBIN. 8.7 g/dL (12.0-16.0); LYMPHOCYTES % 7.7 % (20.0-50.0); MEAN CORPUSCULAR HEMOGLOBIN 27.4 pg (28.0-32.0); MEAN CORPUSCULAR VOLUME 84.5 fL (81.0-99.0); MEAN PLATELET VOLUME 8.4 fl (7.4-10.4); MONOCYTES % 4.4 % (2.0-8.0); NEUTROPHILS % 87.2 % (40.0-76.0); PLATELET 190 x1000/uL (130-400); RED BLOOD CELL COUNT 3.16 mill/uL (4.2-5.4); RED CELL DISTRIBUTION WIDTH 15.9 % (11.6-14.6)
[2019-02-15 06:27] LABS: CHLORIDE 102 mEq/L (98-107)
[2019-02-15 06:37] LABS: PHOSPHORUS 2.7 mg/dL (2.5-4.9)
[2019-02-15 08:00] VITALS: BP 122/57
[2019-02-15] MEDS: SODIUM HYPOCHLORITE 0.125% 473ML SOLUTION TOP SCH (08:25)
[2019-02-15] MEDS: FAMOTIDINE 20MG/2ML VIAL IV SCH (08:28)
[2019-02-15] MEDS: ENOXAPARIN 30MG/0.3ML SYR SUBCUT SCH (08:28)
[2019-02-15 10:34] LABS: HEMATOCRIT 23.3 % (36.0-48.0); HEMOGLOBIN 7.5 g/dL (12.0-16.0); MEAN CORPUSCULAR VOLUME 84.1 fL (81.0-99.0); PLATELET 173 x1000/uL (130-400); RED BLOOD CELL COUNT 2.77 mill/uL (4.2-5.4)
[2019-02-15 10:43] LABS: CHLORIDE 104 mEq/L (98-107)
[2019-02-15] MEDS: DEXT 5%/0.2% NACL 1,000 ML IV SCH (10:48)
[2019-02-15 10:49] LABS: PHOSPHORUS 2.5 mg/dL (2.5-4.9)
[2019-02-15 12:00] VITALS: BP 148/50
[2019-02-15 16:00] VITALS: BP 143/45
[2019-02-15 20:00] VITALS: BP_SYST 126; BP_SYST 189; BP_DIAS 119; BP_DIAS 50
[2019-02-15] MEDS ORDERED: TOTAL PARENTERAL NUTRITION 1,300 ML IV SCH (21:00)
[2019-02-16] VITALS: BP 119/43
[2019-02-16] MEDS: DEXT 5%/0.2% NACL 1,000 ML IV SCH ×2 (01:25→21:51)
[2019-02-16] MEDS: IPRATROPIUM/ALBUTEROL 0.5-3(2.5)MG/3ML NEB HHN SCH ×4 (02:40→21:38)
[2019-02-16 04:00] VITALS: BP 126/57
[2019-02-16 06:16] LABS: BASOPHILS % 0.2 % (0.0-2.0); EOSINOPHILS % 1.4 % (0.0-5.0); LYMPHOCYTES % 7.9 % (20.0-50.0); MEAN CORPUSCULAR HEMOGLOBIN 27.9 pg (28.0-32.0); MEAN CORPUSCULAR VOLUME 83.6 fL (81.0-99.0); MEAN PLATELET VOLUME 8.1 fl (7.4-10.4); MONOCYTES % 5.7 % (2.0-8.0); NEUTROPHILS % 84.8 % (40.0-76.0); PLATELET 175 x1000/uL (130-400); RED BLOOD CELL COUNT 2.48 mill/uL (4.2-5.4); RED CELL DISTRIBUTION WIDTH 15.9 % (11.6-14.6)
[2019-02-16 06:50] LABS: CHLORIDE 104 mEq/L (98-107)
[2019-02-16] MEDS: BLOOD SUGAR DIAGNOSTIC STRIP TEST SCH ×4 (06:51→18:00)
[2019-02-16 08:00] VITALS: BP 142/63
[2019-02-16 08:11] LABS: HEMATOCRIT. 20.7 % (36.0-48.0); HEMOGLOBIN. 6.9 g/dL (12.0-16.0)
[2019-02-16 09:47] LABS: HEMATOCRIT 23.3 % (36.0-48.0); HEMOGLOBIN 7.7 g/dL (12.0-16.0); MEAN CORPUSCULAR HEMOGLOBIN 27.7 pg (28.0-32.0); MEAN CORPUSCULAR VOLUME 84.4 fL (81.0-99.0); PLATELET 181 x1000/uL (130-400); RED BLOOD CELL COUNT 2.77 mill/uL (4.2-5.4); RED CELL DISTRIBUTION WIDTH 15.9 % (11.6-14.6)
[2019-02-16] MEDS: FAMOTIDINE 20MG/2ML VIAL IV SCH (10:22)
[2019-02-16] MEDS: ENOXAPARIN 30MG/0.3ML SYR SUBCUT SCH (10:23)
[2019-02-16] MEDS: SODIUM HYPOCHLORITE 0.125% 473ML SOLUTION TOP SCH (10:25)
[2019-02-16 12:00] VITALS: BP 141/68
[2019-02-16 14:09] LABS: CHLORIDE 105 mEq/L (98-107)
[2019-02-16 16:00] VITALS: BP 117/66
[2019-02-16 20:00] VITALS: BP 128/57
[2019-02-16] MEDS ORDERED: TOTAL PARENTERAL NUTRITION 1,800 ML IV SCH (21:00)
[2019-02-16] MEDS: FAT EMULSIONS 500 ML IV SCH (21:50)
[2019-02-17] VITALS (10 sets, daily range): BP systolic 107–154; BP diastolic 44–62
[2019-02-17] MEDS: BLOOD SUGAR DIAGNOSTIC STRIP TEST SCH
[2019-02-17] MEDS: IPRATROPIUM/ALBUTEROL 0.5-3(2.5)MG/3ML NEB HHN SCH ×4 (02:53→21:30)
[2019-02-17 09:17] LABS: BASOPHILS % 0.3 % (0.0-2.0); EOSINOPHILS % 1.3 % (0.0-5.0); LYMPHOCYTES % 10.6 % (20.0-50.0); MEAN CORPUSCULAR HEMOGLOBIN 27.8 pg (28.0-32.0); MEAN CORPUSCULAR VOLUME 84.4 fL (81.0-99.0); MEAN PLATELET VOLUME 8.6 fl (7.4-10.4); MONOCYTES % 5.3 % (2.0-8.0); NEUTROPHILS % 82.5 % (40.0-76.0); PLATELET 177 x1000/uL (130-400); RED BLOOD CELL COUNT 2.44 mill/uL (4.2-5.4); RED CELL DISTRIBUTION WIDTH 16.1 % (11.6-14.6)
[2019-02-17 09:21] LABS: HEMOGLOBIN. 6.8 g/dL (12.0-16.0)
[2019-02-17 09:22] LABS: HEMATOCRIT. 20.6 % (36.0-48.0)
[2019-02-17 09:37] LABS: PHOSPHORUS 1.2 mg/dL (2.5-4.9)
[2019-02-17] MEDS: FAMOTIDINE 20MG/2ML VIAL IV SCH (09:47)
[2019-02-17] MEDS: ENOXAPARIN 30MG/0.3ML SYR SUBCUT SCH (09:47)
[2019-02-17] MEDS: SODIUM HYPOCHLORITE 0.125% 473ML SOLUTION TOP SCH (09:47)
[2019-02-17] MEDS: ACETAMINOPHEN 650MG SUPP PR PRN (12:49)
[2019-02-17] MEDS ORDERED: MAGNESIUM 4 G PREMIX 100 ML IV NR (15:00)
[2019-02-17] MEDS ORDERED: POTASSIUM PHOS,M-BASIC-D-BASIC 30 MMOL in DEXT 5% WATER 500 ML IV NR (15:30)
[2019-02-17] MEDS ORDERED: TOTAL PARENTERAL NUTRITION 1,800 ML IV SCH (21:00)
[2019-02-18] VITALS (7 sets, daily range): BP systolic 131–144; BP diastolic 50–74
[2019-02-18 04:39] LABS: CLARITY URINE CLOUDY (CLEAR); COLOR URINE YELLOW (YELLOW); KETONES URINE NEGATIVE (NEGATIVE); LEUKOCYTE ESTERASE URINE 3+ (NEGATIVE); NITRITE URINE POSITIVE (NEGATIVE); OCCULT BLOOD URINE 1+ (NEGATIVE); PH URINE 6.5 (4.5-8.0); PROTEIN URINE NEGATIVE (NEGATIVE); SPECIFIC GRAVITY URINE 1.008 (1.005-1.030); UROBILINOGEN URINE 0.2 E.U./dL (0.2-1.0)
[2019-02-18 07:05] LABS: BASOPHILS % 0.4 % (0.0-2.0); EOSINOPHILS % 1.4 % (0.0-5.0); HEMATOCRIT. 28.5 % (36.0-48.0); HEMOGLOBIN. 9.4 g/dL (12.0-16.0); LYMPHOCYTES % 9.3 % (20.0-50.0); MEAN CORPUSCULAR HEMOGLOBIN 27.9 pg (28.0-32.0); MEAN PLATELET VOLUME 8.1 fl (7.4-10.4); MONOCYTES % 5.1 % (2.0-8.0); NEUTROPHILS % 83.8 % (40.0-76.0); PLATELET 210 x1000/uL (130-400); RED BLOOD CELL COUNT 3.36 mill/uL (4.2-5.4); RED CELL DISTRIBUTION WIDTH 15.2 % (11.6-14.6)
[2019-02-18 07:09] LABS: CHLORIDE 105 mEq/L (98-107)
[2019-02-18 07:16] LABS: PHOSPHORUS 3.6 mg/dL (2.5-4.9)
[2019-02-18] MEDS: ENOXAPARIN 30MG/0.3ML SYR SUBCUT SCH (09:50)
[2019-02-18] MEDS: FAMOTIDINE 20MG/2ML VIAL IV SCH (09:50)
[2019-02-18] MEDS: BLOOD SUGAR DIAGNOSTIC STRIP TEST SCH (09:51)
[2019-02-18] MEDS: IPRATROPIUM/ALBUTEROL 0.5-3(2.5)MG/3ML NEB HHN SCH ×3 (10:19→20:38)
[2019-02-18] MEDS: SODIUM HYPOCHLORITE 0.125% 473ML SOLUTION TOP SCH (13:54)
[2019-02-18] MEDS ORDERED: TOTAL PARENTERAL NUTRITION 1,800 ML IV SCH (21:00)
[2019-02-19] VITALS: BP 131/53
[2019-02-19] MEDS: IPRATROPIUM/ALBUTEROL 0.5-3(2.5)MG/3ML NEB HHN SCH ×5 (01:50→21:02)
[2019-02-19 04:00] VITALS: BP 99/60
[2019-02-19 06:20] LABS: BASOPHILS % 0.2 % (0.0-2.0); EOSINOPHILS % 0.7 % (0.0-5.0); HEMATOCRIT. 25.1 % (36.0-48.0); HEMOGLOBIN. 8.2 g/dL (12.0-16.0); LYMPHOCYTES % 8.8 % (20.0-50.0); MEAN CORPUSCULAR HEMOGLOBIN 27.7 pg (28.0-32.0); MEAN CORPUSCULAR VOLUME 84.5 fL (81.0-99.0); MEAN PLATELET VOLUME 7.9 fl (7.4-10.4); MONOCYTES % 5.2 % (2.0-8.0); NEUTROPHILS % 85.1 % (40.0-76.0); PLATELET 241 x1000/uL (130-400); RED BLOOD CELL COUNT 2.96 mill/uL (4.2-5.4)
[2019-02-19 06:53] LABS: CHLORIDE 104 mEq/L (98-107)
[2019-02-19 07:02] LABS: PHOSPHORUS 2.2 mg/dL (2.5-4.9)
[2019-02-19 08:00] VITALS: BP 122/62
[2019-02-19] MEDS: BLOOD SUGAR DIAGNOSTIC STRIP TEST SCH (09:00)
[2019-02-19] MEDS: FAMOTIDINE 20MG/2ML VIAL IV SCH (09:44)
[2019-02-19] MEDS: ENOXAPARIN 30MG/0.3ML SYR SUBCUT SCH (09:44)
[2019-02-19] MEDS: SODIUM HYPOCHLORITE 0.125% 473ML SOLUTION TOP SCH (09:49)
[2019-02-19 12:00] VITALS: BP 142/70
[2019-02-19] MEDS ORDERED: SODIUM PHOS,M-BASIC-D-BASIC 15 MM in DEXT 5% WATER 245 ML IV NR (14:00)
[2019-02-19 16:00] VITALS: BP 102/63
[2019-02-19 20:00] VITALS: BP 156/66
[2019-02-19] MEDS ORDERED: TOTAL PARENTERAL NUTRITION 1,800 ML IV SCH (21:00)
[2019-02-19] MEDS: FAT EMULSIONS 500 ML IV SCH (21:19)
[2019-02-20] VITALS: BP 140/77
[2019-02-20 04:00] VITALS: BP 157/61
[2019-02-20 08:00] VITALS: BP 135/104
[2019-02-20 08:08] LABS: BASOPHILS % 0.2 % (0.0-2.0); EOSINOPHILS % 0.9 % (0.0-5.0); HEMATOCRIT. 25.2 % (36.0-48.0); HEMOGLOBIN. 8.4 g/dL (12.0-16.0); LYMPHOCYTES % 9.8 % (20.0-50.0); MEAN CORPUSCULAR HEMOGLOBIN 28.3 pg (28.0-32.0); MEAN CORPUSCULAR VOLUME 84.9 fL (81.0-99.0); MEAN PLATELET VOLUME 8.2 fl (7.4-10.4); MONOCYTES % 5.8 % (2.0-8.0); NEUTROPHILS % 83.3 % (40.0-76.0); PLATELET 275 x1000/uL (130-400); RED BLOOD CELL COUNT 2.97 mill/uL (4.2-5.4); RED CELL DISTRIBUTION WIDTH 15.7 % (11.6-14.6)
[2019-02-20 08:11] LABS: CHLORIDE 101 mEq/L (98-107)
[2019-02-20] MEDS: IPRATROPIUM/ALBUTEROL 0.5-3(2.5)MG/3ML NEB HHN SCH ×3 (08:21→20:40)
[2019-02-20 08:23] LABS: PHOSPHORUS 3.2 mg/dL (2.5-4.9)
[2019-02-20] MEDS: ENOXAPARIN 30MG/0.3ML SYR SUBCUT SCH (09:44)
[2019-02-20] MEDS: FAMOTIDINE 20MG/2ML VIAL IV SCH (09:44)
[2019-02-20] MEDS: BLOOD SUGAR DIAGNOSTIC STRIP TEST SCH ×3 (09:44→17:36)
[2019-02-20] MEDS: SODIUM HYPOCHLORITE 0.125% 473ML SOLUTION TOP SCH (09:45)
[2019-02-20] MEDS ORDERED: DEXTROSE 50% WATER 50ML SYRINGE IV PRN (11:30)
[2019-02-20 12:00] VITALS: BP 131/62
[2019-02-20] MEDS: INSULIN LISPRO (LOW DOSE) 100 UNITS/ML SUBCUT SCH ×2 (12:00→17:36)
[2019-02-20] MEDS ORDERED: CLONIDINE HCL 0.2MG/24HR PATCH TD SCH (15:00)
[2019-02-20 16:00] VITALS: BP 119/51
[2019-02-20 16:43] LABS: CHLORIDE 103 mEq/L (98-107)
[2019-02-20 20:00] VITALS: BP 138/52
[2019-02-20] MEDS ORDERED: TOTAL PARENTERAL NUTRITION 1,800 ML IV SCH (21:00)
[2019-02-20] MEDS: DEXT 5%/0.45% NACL 1000ML 1,000 ML IV SCH (21:53)
[2019-02-21] VITALS (7 sets, daily range): BP systolic 130–153; BP diastolic 44–72
[2019-02-21] MEDS: IPRATROPIUM/ALBUTEROL 0.5-3(2.5)MG/3ML NEB HHN SCH ×4 (01:10→20:11)
[2019-02-21] MEDS: BLOOD SUGAR DIAGNOSTIC STRIP TEST SCH ×5 (03:04→23:20)
[2019-02-21] MEDS: INSULIN LISPRO (LOW DOSE) 100 UNITS/ML SUBCUT SCH ×5 (06:00→23:20)
[2019-02-21] MEDS: DEXT 5%/0.45% NACL 1000ML 1,000 ML IV SCH (06:40)
[2019-02-21] MEDS: ENOXAPARIN 30MG/0.3ML SYR SUBCUT SCH (09:28)
[2019-02-21] MEDS: FAMOTIDINE 20MG/2ML VIAL IV SCH (09:28)
[2019-02-21] MEDS: SODIUM HYPOCHLORITE 0.125% 473ML SOLUTION TOP SCH (09:29)
[2019-02-21 10:23] LABS: CHLORIDE 103 mEq/L (98-107)
[2019-02-21 10:27] LABS: BASOPHILS % 0.2 % (0.0-2.0); EOSINOPHILS % 0.8 % (0.0-5.0); HEMATOCRIT. 25.6 % (36.0-48.0); HEMOGLOBIN. 8.4 g/dL (12.0-16.0); LYMPHOCYTES % 10.6 % (20.0-50.0); MEAN CORPUSCULAR HEMOGLOBIN 27.9 pg (28.0-32.0); MEAN CORPUSCULAR VOLUME 84.9 fL (81.0-99.0); MEAN PLATELET VOLUME 8.5 fl (7.4-10.4); MONOCYTES % 6.4 % (2.0-8.0); PLATELET 347 x1000/uL (130-400); RED BLOOD CELL COUNT 3.01 mill/uL (4.2-5.4); RED CELL DISTRIBUTION WIDTH 15.7 % (11.6-14.6)
[2019-02-21 10:28] LABS: PHOSPHORUS 3.8 mg/dL (2.5-4.9)
[2019-02-21] MEDS: DEXT 5%/0.9% NACL 1,000 ML IV SCH ×3 (11:40→23:16)
[2019-02-21] MEDS ORDERED: DEXT 5%/0.9% NACL 1,000 ML IV SCH (11:45)
[2019-02-21] MEDS: CEFEPIME 1,000 MG in DEXTROSE 5% WATER 50 ML IV SCH (12:37)
[2019-02-22] VITALS: BP 124/42
[2019-02-22] MEDS: IPRATROPIUM/ALBUTEROL 0.5-3(2.5)MG/3ML NEB HHN SCH ×4 (01:49→21:11)
[2019-02-22 04:00] VITALS: BP 141/49
[2019-02-22] MEDS: BLOOD SUGAR DIAGNOSTIC STRIP TEST SCH ×3 (06:00→16:39)
[2019-02-22] MEDS: INSULIN LISPRO (LOW DOSE) 100 UNITS/ML SUBCUT SCH ×3 (06:00→16:39)
[2019-02-22 07:49] LABS: BASOPHILS % 0.5 % (0.0-2.0); EOSINOPHILS % 1.1 % (0.0-5.0); HEMATOCRIT. 27.3 % (36.0-48.0); HEMOGLOBIN. 8.9 g/dL (12.0-16.0); LYMPHOCYTES % 11.4 % (20.0-50.0); MEAN CORPUSCULAR HEMOGLOBIN 27.7 pg (28.0-32.0); MEAN PLATELET VOLUME 8.7 fl (7.4-10.4); MONOCYTES % 7.5 % (2.0-8.0); NEUTROPHILS % 79.5 % (40.0-76.0); PLATELET 358 x1000/uL (130-400); RED BLOOD CELL COUNT 3.21 mill/uL (4.2-5.4); RED CELL DISTRIBUTION WIDTH 15.4 % (11.6-14.6)
[2019-02-22 08:18] LABS: CHLORIDE 105 mEq/L (98-107)
[2019-02-22 08:27] VITALS: BP 118/60
[2019-02-22 08:28] LABS: PHOSPHORUS 3.5 mg/dL (2.5-4.9)
[2019-02-22] MEDS: ENOXAPARIN 30MG/0.3ML SYR SUBCUT SCH ×2 (09:14→20:51)
[2019-02-22] MEDS: FAMOTIDINE 20MG/2ML VIAL IV SCH (09:14)
[2019-02-22] MEDS: SODIUM HYPOCHLORITE 0.125% 473ML SOLUTION TOP SCH (09:15)
[2019-02-22 12:00] VITALS: BP 131/45
[2019-02-22] MEDS: CEFEPIME 1,000 MG in DEXTROSE 5% WATER 50 ML IV SCH (13:06)
[2019-02-22] MEDS ORDERED: MAGNESIUM 2 G PREMIX 50 ML IV NR (15:30)
[2019-02-22 16:30] VITALS: BP 136/68
[2019-02-22] MEDS: MEGESTROL ACETATE 400 MG/10 ML UDC PO SCH (16:33)
[2019-02-22 20:00] VITALS: BP 129/73
[2019-02-23] VITALS (7 sets, daily range): BP systolic 97–146; BP diastolic 40–69
[2019-02-23] MEDS: IPRATROPIUM/ALBUTEROL 0.5-3(2.5)MG/3ML NEB HHN SCH ×4 (01:08→20:36)
[2019-02-23] MEDS: SODIUM HYPOCHLORITE 0.125% 473ML SOLUTION TOP SCH (09:00)
[2019-02-23] MEDS: MEGESTROL ACETATE 400 MG/10 ML UDC PO SCH ×2 (09:06→17:52)
[2019-02-23] MEDS: FAMOTIDINE 20MG/2ML VIAL IV SCH (09:06)
[2019-02-23] MEDS: DEXT 5%/0.9% NACL 1,000 ML IV SCH (09:07)
[2019-02-23] MEDS: ENOXAPARIN 30MG/0.3ML SYR SUBCUT SCH ×2 (09:07→20:41)
[2019-02-23 12:21] LABS: BASOPHILS % 0.4 % (0.0-2.0); HEMOGLOBIN. 9.6 g/dL (12.0-16.0); LYMPHOCYTES % 12.5 % (20.0-50.0); MEAN CORPUSCULAR HEMOGLOBIN 27.6 pg (28.0-32.0); MEAN PLATELET VOLUME 8.7 fl (7.4-10.4); MONOCYTES % 6.3 % (2.0-8.0); NEUTROPHILS % 79.8 % (40.0-76.0); PLATELET 438 x1000/uL (130-400); RED BLOOD CELL COUNT 3.49 mill/uL (4.2-5.4); RED CELL DISTRIBUTION WIDTH 15.4 % (11.6-14.6)
[2019-02-23 12:58] LABS: PHOSPHORUS 2.5 mg/dL (2.5-4.9)
[2019-02-23 13:16] LABS: CHLORIDE 107 mEq/L (98-107)
[2019-02-24] VITALS: BP 97/49
[2019-02-24] MEDS: IPRATROPIUM/ALBUTEROL 0.5-3(2.5)MG/3ML NEB HHN SCH ×5 (01:45→20:30)
[2019-02-24 04:00] VITALS: BP 99/45
[2019-02-24 07:16] LABS: BASOPHILS % 0.4 % (0.0-2.0); EOSINOPHILS % 0.4 % (0.0-5.0); LYMPHOCYTES % 10.5 % (20.0-50.0); MEAN CORPUSCULAR HEMOGLOBIN 27.7 pg (28.0-32.0); MEAN CORPUSCULAR VOLUME 85.3 fL (81.0-99.0); MEAN PLATELET VOLUME 8.7 fl (7.4-10.4); MONOCYTES % 4.6 % (2.0-8.0); NEUTROPHILS % 84.1 % (40.0-76.0); PLATELET 355 x1000/uL (130-400); RED BLOOD CELL COUNT 2.85 mill/uL (4.2-5.4); RED CELL DISTRIBUTION WIDTH 15.7 % (11.6-14.6)
[2019-02-24 07:26] LABS: PHOSPHORUS 2.5 mg/dL (2.5-4.9)
[2019-02-24 07:51] LABS: HEMOGLOBIN. 7.9 g/dL (12.0-16.0)
[2019-02-24 07:52] LABS: HEMATOCRIT. 24.3 % (36.0-48.0)
[2019-02-24] MEDS: ACETAMINOPHEN 650MG SUPP PR PRN (07:55)
[2019-02-24 08:00] VITALS: BP 103/47
[2019-02-24] MEDS: MEGESTROL ACETATE 400 MG/10 ML UDC PO SCH ×2 (09:24→16:39)
[2019-02-24] MEDS: ENOXAPARIN 30MG/0.3ML SYR SUBCUT SCH ×2 (09:25→21:35)
[2019-02-24] MEDS: FAMOTIDINE 20MG/2ML VIAL IV SCH (09:25)
[2019-02-24] MEDS: DEXT 5%/0.9% NACL 1,000 ML IV SCH (09:26)
[2019-02-24 12:19] VITALS: BP 101/57
[2019-02-24] MEDS ORDERED: ACETAMINOPHEN 650MG/20.3ML UDC PO PRN (16:15)
[2019-02-24 17:00] VITALS: BP 108/56
[2019-02-24 20:00] VITALS: BP 122/60
[2019-02-25] VITALS: BP 122/60
[2019-02-25] MEDS: IPRATROPIUM/ALBUTEROL 0.5-3(2.5)MG/3ML NEB HHN SCH ×4 (02:18→21:25)
[2019-02-25 04:00] VITALS: BP 108/63
[2019-02-25 08:00] VITALS: BP 147/70
[2019-02-25 08:13] LABS: BASOPHILS % 0.5 % (0.0-2.0); EOSINOPHILS % 2.1 % (0.0-5.0); HEMOGLOBIN. 7.6 g/dL (12.0-16.0); LYMPHOCYTES % 18.5 % (20.0-50.0); MEAN CORPUSCULAR VOLUME 84.9 fL (81.0-99.0); MEAN PLATELET VOLUME 8.2 fl (7.4-10.4); MONOCYTES % 5.8 % (2.0-8.0); NEUTROPHILS % 73.1 % (40.0-76.0); PLATELET 431 x1000/uL (130-400); RED BLOOD CELL COUNT 2.71 mill/uL (4.2-5.4); RED CELL DISTRIBUTION WIDTH 15.8 % (11.6-14.6)
[2019-02-25 08:21] LABS: CHLORIDE 115 mEq/L (98-107)
[2019-02-25 08:27] LABS: PHOSPHORUS 2.7 mg/dL (2.5-4.9)
[2019-02-25] MEDS: ENOXAPARIN 30MG/0.3ML SYR SUBCUT SCH ×2 (11:43→21:52)
[2019-02-25] MEDS: FAMOTIDINE 20MG/2ML VIAL IV SCH (11:43)
[2019-02-25 12:00] VITALS: BP 137/68
[2019-02-25] MEDS ORDERED: AMIKACIN SULFATE 600 MG in SODIUM CHLORIDE 0.9% 100 ML IV SCH (12:00)
[2019-02-25] MEDS: MEGESTROL ACETATE 400 MG/10 ML UDC PO SCH ×2 (12:38→18:55)
[2019-02-25 16:00] VITALS: BP 150/69
[2019-02-26] VITALS: BP 124/84
[2019-02-26] MEDS: IPRATROPIUM/ALBUTEROL 0.5-3(2.5)MG/3ML NEB HHN SCH ×5 (01:51→22:08)
[2019-02-26 04:00] VITALS: BP 130/47
[2019-02-26 07:35] LABS: BASOPHILS % 0.6 % (0.0-2.0); EOSINOPHILS % 2.5 % (0.0-5.0); HEMOGLOBIN. 7.6 g/dL (12.0-16.0); LYMPHOCYTES % 23.2 % (20.0-50.0); MEAN CORPUSCULAR HEMOGLOBIN 28.3 pg (28.0-32.0); MEAN CORPUSCULAR VOLUME 85.5 fL (81.0-99.0); MEAN PLATELET VOLUME 8.4 fl (7.4-10.4); MONOCYTES % 7.7 % (2.0-8.0); PLATELET 470 x1000/uL (130-400); RED BLOOD CELL COUNT 2.69 mill/uL (4.2-5.4); RED CELL DISTRIBUTION WIDTH 15.6 % (11.6-14.6)
[2019-02-26 07:57] LABS: CHLORIDE 118 mEq/L (98-107)
[2019-02-26 08:00] VITALS: BP 149/71
[2019-02-26 08:03] LABS: PHOSPHORUS 2.9 mg/dL (2.5-4.9)
[2019-02-26] MEDS: ENOXAPARIN 30MG/0.3ML SYR SUBCUT SCH ×2 (09:12→21:31)
[2019-02-26] MEDS: AMIKACIN SULFATE 400 MG in SODIUM CHLORIDE 0.9% 100 ML IV SCH (09:12)
[2019-02-26] MEDS: FAMOTIDINE 20MG/2ML VIAL IV SCH (09:12)
[2019-02-26] MEDS: MEGESTROL ACETATE 400 MG/10 ML UDC PO SCH ×2 (09:12→18:39)
[2019-02-26 12:00] VITALS: BP 104/46
[2019-02-26 16:00] VITALS: BP 136/72
[2019-02-26] MEDS: DEXT 5%/0.9% NACL 1,000 ML IV SCH (18:39)
[2019-02-26 20:00] VITALS: BP 120/63
[2019-02-27] VITALS: BP 142/73
[2019-02-27] MEDS: AMIKACIN SULFATE 400 MG in SODIUM CHLORIDE 0.9% 100 ML IV SCH ×2 (01:57→20:00)
[2019-02-27] MEDS: IPRATROPIUM/ALBUTEROL 0.5-3(2.5)MG/3ML NEB HHN SCH ×4 (03:21→20:39)
[2019-02-27 04:00] VITALS: BP 139/58
[2019-02-27 07:07] LABS: BASOPHILS % 0.6 % (0.0-2.0); EOSINOPHILS % 1.7 % (0.0-5.0); HEMATOCRIT. 26.8 % (36.0-48.0); HEMOGLOBIN. 8.7 g/dL (12.0-16.0); MEAN CORPUSCULAR VOLUME 86.3 fL (81.0-99.0); MEAN PLATELET VOLUME 8.4 fl (7.4-10.4); NEUTROPHILS % 63.7 % (40.0-76.0); PLATELET 490 x1000/uL (130-400); RED CELL DISTRIBUTION WIDTH 15.7 % (11.6-14.6)
[2019-02-27 07:08] LABS: CHLORIDE 119 mEq/L (98-107)
[2019-02-27 07:14] LABS: PHOSPHORUS 3.1 mg/dL (2.5-4.9)
[2019-02-27 08:00] VITALS: BP 130/71
[2019-02-27] MEDS: ENOXAPARIN 30MG/0.3ML SYR SUBCUT SCH ×2 (09:08→20:09)
[2019-02-27] MEDS: FAMOTIDINE 20MG/2ML VIAL IV SCH (09:09)
[2019-02-27] MEDS: MEGESTROL ACETATE 400 MG/10 ML UDC PO SCH ×2 (09:11→18:51)
[2019-02-27 12:00] VITALS: BP 131/67
[2019-02-27 16:00] VITALS: BP 132/65
[2019-02-27 20:00] VITALS: BP 134/68
[2019-02-27] MEDS ORDERED: MAGNESIUM 2 G PREMIX 50 ML IV NR (20:00)
[2019-02-27] MEDS: DEXT 5%/0.45% NACL 1000ML 1,000 ML IV SCH (20:01)
[2019-02-28 00:44] VITALS: BP 146/62
[2019-02-28] MEDS: IPRATROPIUM/ALBUTEROL 0.5-3(2.5)MG/3ML NEB HHN SCH ×4 (01:10→21:12)
[2019-02-28 04:00] VITALS: BP 149/71
[2019-02-28 06:11] LABS: BASOPHILS % 0.5 % (0.0-2.0); EOSINOPHILS % 1.9 % (0.0-5.0); HEMATOCRIT. 24.4 % (36.0-48.0); LYMPHOCYTES % 30.6 % (20.0-50.0); MEAN CORPUSCULAR HEMOGLOBIN 28.1 pg (28.0-32.0); MEAN CORPUSCULAR VOLUME 86.1 fL (81.0-99.0); MONOCYTES % 9.5 % (2.0-8.0); NEUTROPHILS % 57.5 % (40.0-76.0); PLATELET 474 x1000/uL (130-400); RED BLOOD CELL COUNT 2.83 mill/uL (4.2-5.4); RED CELL DISTRIBUTION WIDTH 15.8 % (11.6-14.6)
[2019-02-28 06:18] LABS: CHLORIDE 118 mEq/L (98-107)
[2019-02-28 06:29] LABS: PHOSPHORUS 3.2 mg/dL (2.5-4.9)
[2019-02-28 08:00] VITALS: BP 135/68
[2019-02-28] MEDS: FAMOTIDINE 20MG/2ML VIAL IV SCH (08:12)
[2019-02-28] MEDS: ENOXAPARIN 30MG/0.3ML SYR SUBCUT SCH ×2 (08:12→21:43)
[2019-02-28] MEDS: MEGESTROL ACETATE 400 MG/10 ML UDC PO SCH ×2 (08:14→17:29)
[2019-02-28 12:00] VITALS: BP 120/60
[2019-02-28] MEDS: AMIKACIN SULFATE 400 MG in SODIUM CHLORIDE 0.9% 100 ML IV SCH (13:51)
[2019-02-28 16:00] VITALS: BP 128/68
[2019-02-28] MEDS: DEXT 5%/0.45% NACL 1000ML 1,000 ML IV SCH (17:29)
[2019-02-28 20:00] VITALS: BP 105/59
[2019-03-01 00:08] VITALS: BP 138/56
[2019-03-01] MEDS: IPRATROPIUM/ALBUTEROL 0.5-3(2.5)MG/3ML NEB HHN SCH ×4 (02:34→21:35)
[2019-03-01 04:00] VITALS: BP 122/47
[2019-03-01 07:19] LABS: BASOPHILS % 0.7 % (0.0-2.0); EOSINOPHILS % 2.5 % (0.0-5.0); HEMATOCRIT. 23.1 % (36.0-48.0); HEMOGLOBIN. 7.7 g/dL (12.0-16.0); LYMPHOCYTES % 26.2 % (20.0-50.0); MEAN CORPUSCULAR HEMOGLOBIN 28.4 pg (28.0-32.0); MEAN PLATELET VOLUME 8.2 fl (7.4-10.4); MONOCYTES % 10.5 % (2.0-8.0); NEUTROPHILS % 60.1 % (40.0-76.0); PLATELET 419 x1000/uL (130-400); RED BLOOD CELL COUNT 2.72 mill/uL (4.2-5.4)
[2019-03-01 07:52] LABS: CHLORIDE 116 mEq/L (98-107)
[2019-03-01 08:00] VITALS: BP 132/64
[2019-03-01] MEDS: MEGESTROL ACETATE 400 MG/10 ML UDC PO SCH ×2 (09:13→18:23)
[2019-03-01] MEDS: ENOXAPARIN 30MG/0.3ML SYR SUBCUT SCH ×2 (09:14→21:49)
[2019-03-01] MEDS: FAMOTIDINE 20MG/2ML VIAL IV SCH (09:14)
[2019-03-01 12:00] VITALS: BP 121/46
[2019-03-01] MEDS: DEXT 5%/0.45% NACL 1000ML 1,000 ML IV SCH (12:03)
[2019-03-01] MEDS ORDERED: AMIKACIN SULFATE 400 MG in SODIUM CHLORIDE 0.9% 100 ML IV SCH (13:00)
[2019-03-01] MEDS ORDERED: KCL 20MEQ/100ML PREMIX 100 ML IV SCH (15:00)
[2019-03-01] MEDS ORDERED: MAGNESIUM 2 G PREMIX 50 ML IV SCH (15:00)
[2019-03-01 16:00] VITALS: BP 119/47
[2019-03-01 19:12] LABS: CLARITY URINE CLOUDY (CLEAR); COLOR URINE YELLOW (YELLOW); KETONES URINE NEGATIVE (NEGATIVE); LEUKOCYTE ESTERASE URINE NEGATIVE (NEGATIVE); NITRITE URINE POSITIVE (NEGATIVE); OCCULT BLOOD URINE NEGATIVE (NEGATIVE); PROTEIN URINE TRACE (NEGATIVE); SPECIFIC GRAVITY URINE 1.014 (1.005-1.030); UROBILINOGEN URINE 0.2 E.U./dL (0.2-1.0)
[2019-03-01 20:00] VITALS: BP 115/69
[2019-03-02] VITALS: BP 118/65
[2019-03-02] MEDS: IPRATROPIUM/ALBUTEROL 0.5-3(2.5)MG/3ML NEB HHN SCH ×4 (01:47→21:20)
[2019-03-02 04:00] VITALS: BP 113/62
[2019-03-02 07:25] LABS: BASOPHILS % 0.4 % (0.0-2.0); EOSINOPHILS % 2.5 % (0.0-5.0); HEMATOCRIT. 21.6 % (36.0-48.0); HEMOGLOBIN. 7.2 g/dL (12.0-16.0); LYMPHOCYTES % 29.1 % (20.0-50.0); MEAN CORPUSCULAR HEMOGLOBIN 28.4 pg (28.0-32.0); MEAN CORPUSCULAR VOLUME 84.8 fL (81.0-99.0); MEAN PLATELET VOLUME 8.2 fl (7.4-10.4); MONOCYTES % 10.1 % (2.0-8.0); NEUTROPHILS % 57.9 % (40.0-76.0); PLATELET 392 x1000/uL (130-400); RED BLOOD CELL COUNT 2.54 mill/uL (4.2-5.4)
[2019-03-02 08:00] VITALS: BP 127/67
[2019-03-02] MEDS: MEGESTROL ACETATE 400 MG/10 ML UDC PO SCH ×2 (09:46→18:47)
[2019-03-02] MEDS: ENOXAPARIN 30MG/0.3ML SYR SUBCUT SCH ×2 (09:46→22:04)
[2019-03-02] MEDS: FAMOTIDINE 20MG/2ML VIAL IV SCH (09:46)
[2019-03-02] MEDS: DEXT 5%/0.45% NACL 1000ML 1,000 ML IV SCH (09:47)
[2019-03-02 12:00] VITALS: BP 127/53
[2019-03-02 16:00] VITALS: BP 126/61
[2019-03-02 20:00] VITALS: BP 142/65
[2019-03-03] VITALS: BP 130/82
[2019-03-03] MEDS: IPRATROPIUM/ALBUTEROL 0.5-3(2.5)MG/3ML NEB HHN SCH ×4 (02:48→21:43)
[2019-03-03 04:00] VITALS: BP 137/68
[2019-03-03 07:25] LABS: BASOPHILS % 0.4 % (0.0-2.0); EOSINOPHILS % 2.6 % (0.0-5.0); HEMATOCRIT. 22.7 % (36.0-48.0); HEMOGLOBIN. 7.6 g/dL (12.0-16.0); LYMPHOCYTES % 20.1 % (20.0-50.0); MEAN CORPUSCULAR HEMOGLOBIN 28.2 pg (28.0-32.0); MEAN CORPUSCULAR VOLUME 84.5 fL (81.0-99.0); MEAN PLATELET VOLUME 8.1 fl (7.4-10.4); MONOCYTES % 8.8 % (2.0-8.0); NEUTROPHILS % 68.1 % (40.0-76.0); PLATELET 371 x1000/uL (130-400); RED BLOOD CELL COUNT 2.69 mill/uL (4.2-5.4)
[2019-03-03 07:28] LABS: CHLORIDE 114 mEq/L (98-107)
[2019-03-03 07:33] LABS: PHOSPHORUS 2.8 mg/dL (2.5-4.9)
[2019-03-03 08:00] VITALS: BP 122/74
[2019-03-03] MEDS: FAMOTIDINE 20MG/2ML VIAL IV SCH (08:31)
[2019-03-03] MEDS: ENOXAPARIN 30MG/0.3ML SYR SUBCUT SCH ×2 (08:33→20:52)
[2019-03-03] MEDS: MEGESTROL ACETATE 400 MG/10 ML UDC PO SCH ×2 (10:17→17:36)
[2019-03-03 12:00] VITALS: BP 138/63
[2019-03-03 16:00] VITALS: BP 126/52
[2019-03-03] MEDS ORDERED: MAGNESIUM 2 G PREMIX 50 ML IV NR (17:00)
[2019-03-03 20:00] VITALS: BP 131/57
[2019-03-04] VITALS: BP 107/53
[2019-03-04 00:05] VITALS: BP 138/58
[2019-03-04] MEDS: IPRATROPIUM/ALBUTEROL 0.5-3(2.5)MG/3ML NEB HHN SCH ×2 (02:43→07:30)
[2019-03-04 04:00] VITALS: BP 134/51
[2019-03-04 06:43] LABS: BASOPHILS % 0.3 % (0.0-2.0); EOSINOPHILS % 2.9 % (0.0-5.0); HEMATOCRIT. 23.1 % (36.0-48.0); HEMOGLOBIN. 7.8 g/dL (12.0-16.0); LYMPHOCYTES % 28.9 % (20.0-50.0); MEAN CORPUSCULAR HEMOGLOBIN 28.6 pg (28.0-32.0); MEAN CORPUSCULAR VOLUME 84.6 fL (81.0-99.0); MEAN PLATELET VOLUME 8.4 fl (7.4-10.4); MONOCYTES % 9.2 % (2.0-8.0); NEUTROPHILS % 58.7 % (40.0-76.0); PLATELET 362 x1000/uL (130-400); RED BLOOD CELL COUNT 2.73 mill/uL (4.2-5.4); RED CELL DISTRIBUTION WIDTH 16.1 % (11.6-14.6)
[2019-03-04 07:07] LABS: PHOSPHORUS 3.3 mg/dL (2.5-4.9)
[2019-03-04 08:00] VITALS: BP 134/57
[2019-03-04] MEDS: MEGESTROL ACETATE 400 MG/10 ML UDC PO SCH (08:43)
[2019-03-04] MEDS: ENOXAPARIN 30MG/0.3ML SYR SUBCUT SCH (08:43)
[2019-03-04 11:58] VITALS: BP 123/43
[2019-03-04 14:07] VITALS: BP 123/43
== END 2019-03-04 14:40 | DRG 853 ==
LOC: ER 15:45 → 7WST 18:09 → ENRESERV 19:47
PROVIDERS: ADMIT Internal Medicine; ATTEND Internal Medicine
PROC: 0JBP0ZZ Excision of Left Lower Leg Subcutaneous Tissue and Fascia, Open Approach (ICD-10-PCS; principal; 2019-02-04)
PROC: 0D9670Z Drainage of Stomach with Drainage Device, Via Natural or Artificial Opening (ICD-10-PCS; 2019-02-04)
PROC: 0DT80ZZ Resection of Small Intestine, Open Approach (ICD-10-PCS; 2019-02-09)
PROC: 0DN80ZZ Release Small Intestine, Open Approach (ICD-10-PCS; 2019-02-09)
PROC: 02HV33Z Insertion of Infusion Device into Superior Vena Cava, Percutaneous Approach (ICD-10-PCS; 2019-02-14)
PROC: B548ZZA Ultrasonography of Superior Vena Cava, Guidance (ICD-10-PCS; 2019-02-14)
PROC: 3E0336Z Introduction of Nutritional Substance into Peripheral Vein, Percutaneous Approach (ICD-10-PCS; 2019-02-15)
PROC: 30233N1 Transfusion of Nonautologous Red Blood Cells into Peripheral Vein, Percutaneous Approach (ICD-10-PCS; 2019-02-17)
DX: A41.9 Sepsis, unspecified organism (principal); L89.323 Pressure ulcer of left buttock, stage 3; E43 Unspecified severe protein-calorie malnutrition; E87.0 Hyperosmolality and hypernatremia; N39.0 Urinary tract infection, site not specified; E87.4 Mixed disorder of acid-base balance; I13.0 Hypertensive heart and chronic kidney disease with heart failure and stage 1 through stage 4 chronic kidney disease, or unspecified chronic kidney disease; K42.0 Umbilical hernia with obstruction, without gangrene; J98.11 Atelectasis; N17.9 Acute kidney failure, unspecified; T81.31XA Disruption of external operation (surgical) wound, not elsewhere classified, initial encounter; J44.9 Chronic obstructive pulmonary disease, unspecified; M48.02 Spinal stenosis, cervical region; N18.3 Chronic kidney disease, stage 3 (moderate); D69.6 Thrombocytopenia, unspecified; E66.01 Morbid (severe) obesity due to excess calories; K42.9 Umbilical hernia without obstruction or gangrene; Y83.6 Removal of other organ (partial) (total) as the cause of abnormal reaction of the patient, or of later complication, without mention of misadventure at the time of the procedure; L89.159 Pressure ulcer of sacral region, unspecified stage; R73.9 Hyperglycemia, unspecified; B96.20 Unspecified Escherichia coli [E. coli] as the cause of diseases classified elsewhere; L89.890 Pressure ulcer of other site, unstageable; B95.2 Enterococcus as the cause of diseases classified elsewhere; K57.30 Diverticulosis of large intestine without perforation or abscess without bleeding; L89.629 Pressure ulcer of left heel, unspecified stage; Z16.12 Extended spectrum beta lactamase (ESBL) resistance; E78.00 Pure hypercholesterolemia, unspecified; S81.812A Laceration without foreign body, left lower leg, initial encounter; E87.5 Hyperkalemia; E87.6 Hypokalemia; B96.5 Pseudomonas (aeruginosa) (mallei) (pseudomallei) as the cause of diseases classified elsewhere; E83.39 Other disorders of phosphorus metabolism; R62.7 Adult failure to thrive; D64.9 Anemia, unspecified; E78.5 Hyperlipidemia, unspecified; X58.XXXA Exposure to other specified factors, initial encounter; Y99.8 Other external cause status; Y93.89 Activity, other specified; Y92.89 Other specified places as the place of occurrence of the external cause; Z82.49 Family history of ischemic heart disease and other diseases of the circulatory system; Z83.3 Family history of diabetes mellitus; Z87.440 Personal history of urinary (tract) infections; Z90.710 Acquired absence of both cervix and uterus; Z74.01 Bed confinement status; Z86.73 Personal history of transient ischemic attack (TIA), and cerebral infarction without residual deficits; Z90.49 Acquired absence of other specified parts of digestive tract; Z68.35 Body mass index [BMI] 35.0-35.9, adult; Z71.3 Dietary counseling and surveillance
CPT/HCPCS: 36415; 36600; 71045; 74018; 74176; 76937; 80048; 80061; 80150; 80202; 82375; 82550; 82570; 82805; 82962; 83036; 83605; 83735; 83880; 83935; 84100; 84134; 84156; 84300; 84478; 84484; 85027; 86850; 86900; 86920; 87077; 87186; 88307; 92610; 93005; 93970; 94640; 97110; 97162; 97166; 99291; A6261; C1725; C1893; J0278; J0290; J0692; J0696; J1100; J1170; J1650; J1956; J2250; J2270; J2370; J2405; J2710; J3010; J3430; J3475; J3480; J3490; J7030; J7040; J7042; J7050; J7060; J7620; P9016; Q9963; A4315